=== PATIENT | female | born 1950 | race Caucasian/White ===

== ENCOUNTER → 2016-12-18 | Outpatient (CLI) | payer OTHER ==
--- NOTE | 2016-12-19 09:33 | MM ---
Reason for exam: screening (asymptomatic). Last mammogram was performed 1 year ago. History: Patient is postmenopausal. Excisional biopsy of the left breast. Physical Findings: A clinical breast exam by your physician is recommended on an annual basis and results should be correlated with mammographic findings. MG Screening Mammo w CAD Bilateral CC and MLO view(s) were taken. Prior study comparison: November 10, 2014, bilateral MG screening mammo w CAD. August 29, 2013, bilateral digital screening mammo w/CAD. There are scattered fibroglandular densities. Finding: There are typically benign vascular, regional, round, diffuse/scattered calcifications in the right breast. There is a chronic nodularity in the right breast. There is no discrete abnormality. ASSESSMENT: Benign, BI-RAD 2 RECOMMENDATION: Routine screening mammogram of both breasts in 1 year.
== END | disposition home or self-care (01) ==
LOC: RADMAMWWP 10:28
PROVIDERS: ATTEND Obstetrics & Gynecology
DX: Z12.31 Encounter for screening mammogram for malignant neoplasm of breast (principal)

== ENCOUNTER 2018-03-21 10:03 | Day surgery (SDC) | payer MEDICARE ==
[2018-03-19 09:00] VITALS: BMI 29.9
[~2018-03-21 10:03] MED LIST: LACTATED RINGERS 1,000 ML IV SCH
[2018-03-21 10:38] VITALS: TEMP 98.8
[2018-03-21] MEDS ORDERED: LIDOCAINE 1% 20 ML VIAL (10MG/ML) FOR IV START INTRADERMA ONE (10:38)
[2018-03-21] MEDS ORDERED: PROPOFOL 10 MG/ML 20 ML VIAL IV ONE (11:22)
--- NOTE | 2018-03-21 11:45 | P.PCN ---
Date of Procedure: 03/21/18 Procedure(s) Performed: Procedure: Total colonoscopy. Preoperative diagnosis: Screening for neoplasia. Postoperative diagnosis: Sigmoid diverticulosis with no evidence of acute diverticulitis, strictures, polyps or cancer. Preparation: HalfLytely prep. Sedation: Was provided by anesthesia. Brief clinical history: The patient is a 67-year-old female who is referred for this evaluation for screening for neoplasia age being her risk factor as well as history of polyps. Her last colonoscopy was more than 4 years ago. She has history of complicated diverticular disease and had sigmoid resection in the past. She has no abdominal complaints, bleeding or anemia. No family history of colon cancer. Procedure: With the patient on her left lateral decubitus position and after informed consent and adequate sedation, the perianal area was inspected and it did not show any fissures or fistulas. There were no masses felt on digital rectal examination. The Olympus CFQ 160L video colonoscope was then inserted in the rectum in the usual fashion and advanced to the cecum. There were several diverticular orifices seen scattered in the sigmoid with no evidence of acute diverticulitis or strictures. No polyps or tumors were seen. I retroflexed the endoscope in the rectum before the endoscope was withdrawn. The patient tolerated the procedure well. Plan: The patient was reassured. Discussed dietary measures. She will follow- up with you as planned and I recommended repeat exam in 5 years.
[2018-03-21 12:23] VITALS: BP 135/76; PULSE 72; RESP 18
== END 2018-03-21 12:35 | disposition home or self-care (01) ==
LOC: ORWHC2ENDO 10:03
DX: Z12.11 Encounter for screening for malignant neoplasm of colon (principal); K57.30 Diverticulosis of large intestine without perforation or abscess without bleeding; Z86.010 Personal history of colon polyps; Z90.49 Acquired absence of other specified parts of digestive tract; I48.91 Unspecified atrial fibrillation; J45.909 Unspecified asthma, uncomplicated; I25.10 Atherosclerotic heart disease of native coronary artery without angina pectoris; E78.5 Hyperlipidemia, unspecified; I25.2 Old myocardial infarction; Z86.73 Personal history of transient ischemic attack (TIA), and cerebral infarction without residual deficits; Z79.01 Long term (current) use of anticoagulants; Z79.51 Long term (current) use of inhaled steroids; Z79.899 Other long term (current) drug therapy; Z88.6 Allergy status to analgesic agent; Z88.1 Allergy status to other antibiotic agents; Z88.5 Allergy status to narcotic agent; Z88.2 Allergy status to sulfonamides; Z88.8 Allergy status to other drugs, medicaments and biological substances
CPT/HCPCS: J2704; G0105; 45378

== ENCOUNTER → 2019-09-05 | Outpatient (CLI) | payer MEDICARE ==
--- NOTE | 2019-09-05 15:21 | BD ---
EXAMINATION TYPE: Axial Bone Density DATE OF EXAM: 09/05/2019 COMPARISON: 12/08/2015 CLINICAL HISTORY: M 89.9 Height: 63.5 IN Weight: 196 LBS FRAX RISK QUESTIONS: Secondary Osteoporosis: 3. Menopause before 45: TOTAL HYST AGE 33 RISK FACTORS HISTORY OF: History of Wrist Fracture: TOM WRISTS When: PT UNSURE Family History of Osteoporosis: YES SISTER Active: YES Diet low in dairy products/other sources of calcium: YES Postmenopausal woman: TOTAL HYST AGE 33 Take estrogen and/or progesterone medications: AGE 34-39 MEDICATIONS: Additional Medications: VIT D,WARFARIN, HEART MED, OCUVITE, EXAM MEASUREMENTS: Bone mineral densitometry was performed using the [employer] System. Bone mineral density as measured about the Lumbar spine is: ----- L1-L4(G/cm2): 0.997 T Score Values are as follows: ----- L2: -1.5 ----- L3: -1.1 ----- L4: -0.9 ----- L1-L4: -1.5 Bone mineral density has: Decreased -1.4% since study of: 12/08/2015 Bone mineral density about the R hip (g/cm2): 0.811 Bone mineral density about the L hip (g/cm2): 0.764 T Score values are as follows: -----R Neck: -1.6 -----L Neck: -2.0 -----R Total: -0.8 -----L Total: -1.0 Bone mineral density has: Decreased -2.2% since study of: 12/08/2015 IMPRESSION: Osteopenia (T Score between -2.5 and -1). There is slightly increased risk of fracture and the patient may be considered for treatment. Re-Screen 2-5 years. NOTE: T-SCORE=SD OF THE YOUNG ADULT MEAN.
--- NOTE | 2019-09-08 09:19 | MM ---
Reason for exam: screening (asymptomatic). Last mammogram was performed 2 years and 9 months ago. History: Patient is postmenopausal. Excisional biopsy of the left breast. Physical Findings: A clinical breast exam by your physician is recommended on an annual basis and results should be correlated with mammographic findings. MG 3D Screening Mammo W/Cad Bilateral CC and MLO view(s) were taken. Prior study comparison: December 18, 2016, bilateral MG screening mammo w CAD. December 13, 2015, left breast MG 3d work up w/cad LT. There are scattered fibroglandular densities. There is a new 5mm mass 6-7cm from nipple on the right. Benign appearing calcifications in the right breast. No suspicious abnormality. ASSESSMENT: Incomplete: need additional imaging evaluation, BI-RAD 0 RECOMMENDATION: Special view mammogram of the right breast. If lesion persists on supplemental views, image directed ultrasound is recommended. [facility] will attempt to contact patient to return for supplemental views and ultrasound if indicated.
== END | disposition home or self-care (01) ==
LOC: RADMAMWWP 11:46
PROVIDERS: ATTEND Obstetrics & Gynecology
DX: Z12.31 Encounter for screening mammogram for malignant neoplasm of breast (principal); M85.89 Other specified disorders of bone density and structure, multiple sites; Z78.0 Asymptomatic menopausal state
CPT/HCPCS: 77063; 77067; 77080

== ENCOUNTER → 2019-09-19 | Outpatient (CLI) | payer MEDICARE ==
--- NOTE | 2019-09-22 12:23 | MM ---
Reason for exam: additional evaluation requested from abnormal screening. Last mammogram was performed less than 1 month ago. History: Patient is postmenopausal. Excisional biopsy of the left breast. Took estrogen for 7 years beginning at age 31. Physical Findings: Nurse did not find any significant physical abnormalities on exam. MG 3D Work Up W/Cad RT Spot compression CC, spot compression MLO, and LM view(s) were taken of the right breast. Prior study comparison: September 05, 2019, bilateral MG 3d screening mammo w/cad. December 18, 2016, bilateral MG screening mammo w CAD. Finding: There is a 5 mm circumscribed oval mass located 5 cm from the nipple in the middle position of the right breast, persists on additional views. These results were verbally communicated with the patient and result sheet given to the patient on 09/19/19. ASSESSMENT: Incomplete: need additional imaging evaluation, BI-RAD 0 RECOMMENDATION: Ultrasound of the right breast.
--- NOTE | 2019-09-22 12:24 | USB ---
Reason for exam: additional evaluation requested from abnormal screening. History: Patient is postmenopausal. Excisional biopsy of the left breast. Took estrogen for 7 years beginning at age 31. US Breast Workup Limited RT Right limited breast ultrasound including focal area of concern, retroareolar and axilla demonstrates a 0.5 x 0.3 x 0.4cm oval, irregular, hypoechoic lesion at 2 o'clock, correlates with mammographic new lesion. These results were verbally communicated with the patient and result sheet given to the patient on 09/19/19. ASSESSMENT: Suspicious, BI-RAD 4 RECOMMENDATION: Stereotactic core biopsy of the right breast. Called Dr. Bui's office with mammographic findings and has scheduled an appointment for the patient for 10/30/19 at 11:[address] Lewis. Biopsy scheduled for 10/31/19 at 8:00. PRELIMINARY REPORT CALLED AND FAXED TO DR. LEWIS ON 09/22/19.
== END | disposition home or self-care (01) ==
LOC: RADMAMWWP 13:53
PROVIDERS: ATTEND Obstetrics & Gynecology
DX: R92.8 Other abnormal and inconclusive findings on diagnostic imaging of breast (principal)
CPT/HCPCS: 77065; 76642; G0279; 77061

== ENCOUNTER → 2019-10-31 | Day surgery (SDC) | payer MEDICARE ==
[2019-10-31 07:19] VITALS: RESP 18; TEMP 97.9
[2019-10-31 07:47] LABS: INR 1.1 (<1.2); Prothrombin Time 10.8 sec (9.0-12.0)
[2019-10-31 10:13] VITALS: BP 134/76; PULSE 68
--- NOTE | 2019-10-31 12:59 | MM ---
EXAMINATION TYPE: MG stereo VAD BX RT DATE OF EXAM: 10/31/2019 COMPARISON: 11/06/2018 CLINICAL HISTORY: Abnormal mammogram TECHNIQUE: 2 views of the right breast post clip placement. FINDINGS: Clip is within the expected region of the biopsy. IMPRESSION: 1. Successful clip placement postbiopsy. Recommendations: 1. Recommendations are pending pathology results. Pathology Results: High Risk RIGHT BREAST, STEREOTACTIC CORE BIOPSY: Fragments of sclerotic intraductal papilloma. Background proliferative fibrocystic changes including complex sclerosing lesion and moderate to florid usual type ductal hyperplasia. See note. Recommendation Surgical consult of the right breast. (papilloma and complex sclerosing lesion) BILLD
== END ==
LOC: RADMAMWWP 06:41
PROVIDERS: ATTEND Surgery
DX: D24.1 Benign neoplasm of right breast (principal); R92.8 Other abnormal and inconclusive findings on diagnostic imaging of breast
CPT/HCPCS: 88305; 85610; 88342; 88341; 19081; A4648; J2001

== ENCOUNTER → 2020-05-03 | Outpatient (CLI) | payer MEDICARE ==
--- NOTE | 2020-05-04 14:09 | MM ---
Reason for exam: follow-up at short interval from prior study. Last mammogram was performed 7 months ago. History: Patient is postmenopausal and has history of high-risk lesion on a previous biopsy at age 69. High risk MG stereo VAD BX RT of the right breast, October 31, 2019. Excisional biopsy of the left breast. Took estrogen for 7 years beginning at age 31. Physical Findings: Nurse did not find any significant physical abnormalities on exam. MG 3D Diag Mammo W/Cad RT CC and MLO view(s) were taken of the right breast. Prior study comparison: September 19, 2019, right breast MG 3d work up w/cad RT. September 05, 2019, bilateral MG 3d screening mammo w/cad. The breast tissue is heterogeneously dense. This may lower the sensitivity of mammography. Finding #1: There is a 4-5 mm circumscribed round mass located 5-6 cm from the nipple in the anterior middle position of the right breast. Finding #2: There are typically benign vascular, dystrophic, round calcifications in the right breast. Previous mammotome biopsy in the right breast. There is a chronic nodularity in the right breast. New finding, more defined since September 19, 2019 and September 05, 2019. These results were verbally communicated with the patient and result sheet given to the patient on 05/03/20. ASSESSMENT: Incomplete: need additional imaging evaluation, BI-RAD 0 RECOMMENDATION: Ultrasound of the right breast.
--- NOTE | 2020-05-04 14:11 | USB ---
Reason for exam: additional evaluation requested from abnormal screening. History: Patient is postmenopausal and has history of high-risk lesion on a previous biopsy at age 69. High risk MG stereo VAD BX RT of the right breast, October 31, 2019. Excisional biopsy of the left breast. Took estrogen for 7 years beginning at age 31. US Breast Limited RT Right limited breast ultrasound including focal area of concern, retroareolar and axilla demonstrates a 0.4 x 0.5 x 0.5cm oval, taller than wide, cystic lesion at 8 o'clock and a 1.7 x 1.4 x 0.2cm lymph node at the axilla. These results were verbally communicated with the patient and result sheet given to the patient on 05/03/20. ASSESSMENT: Probably benign, BI-RAD 3 RECOMMENDATION: Follow-up diagnostic mammogram and ultrasound of the right breast in 6 months.
== END | disposition home or self-care (01) ==
LOC: RADMAMWWP 13:44
PROVIDERS: ATTEND Surgery
DX: R92.8 Other abnormal and inconclusive findings on diagnostic imaging of breast (principal)
CPT/HCPCS: 77065; 76642; G0279; 77061

== ENCOUNTER → 2020-06-04 | Outpatient (CLI) | payer MEDICARE ==
[2020-06-04 11:15] VITALS: BP 145/99; PULSE 88; RESP 18; TEMP 98.1
--- NOTE | 2020-06-04 11:56 | P.PN ---
Subjective Progress Note Date: 06/04/20 Principal diagnosis: intraductal papilloma right breast Rowena is a 69 year old white female seen in consultation for DR. Bui on 11-06-19 with a routine screening mammogram performed on [id number]. It revealed a 5 mm area 6-7 cm from the nipple in the right breast. No lesions of concern were noted in the left breast. On 09/19/2019 she had additional views done of the right breast which the 5 mm mass remained present. She subsequently underwent an ultrasound which confirmed the area at 2:00 which correlated with the mammographic lesion. Stereotactic core biopsy of the lesion in the right breast was preformed, and the pathology revelaed an intraductal papilloma. She was recommended to undergo an excisional biopsy which was delayed secondary to Covid. She has had a recent repeat right breast mammogram on 05-03-20. The patient does not feel any discrete masses or lumps in either breast. She is not complaining of any nipple discharge of concern. She does not complain of any discomfort in her breast. She does not complain of any nipple discharge, skin changes, trauma, or infection of either breast. She did have a left breast biopsy in the past which was benign fibrocystic disease. This was done many years ago. Caffeine:3 cups/day nicotine: none chocolate: Occasional/intermittent Family history: sister: ovarian cancer at 52 mother: cervical cancer paternal aunt: breast cancer, 60's Hormonal History: menarche: 13 , first born at 23, bresat fed: yes menopause: hysterectomy for bleeding and pain, took one ovary done at 33 BCP: none hormones: 3 years after hysterectomy Surgical history: 1. Hysterectomy in 1 ovary removed 2. Colon resection for diverticular disease 3. Ventral hernia repair 4. Left breast biopsy 5. Tonsillectomy 6. oophrectomy to remove remaining ovary after her hysterectomy she has no ovaries left 7. laproscopic exams for adhesions Medical History: 1. CVA 1987, 5 TIA's related to atrial fib and Mitral valve prolapse 2. 2 MS last one over 5 years ago Social History: smoke: none alcohol: none drugs: none - Constitutional Constitutional: Denies chills, Denies fever - EENT Eyes: denies blurred vision, denies pain Ears: left: decreased hearing, deny: tinnitus Ears, nose, mouth and throat: Denies headache, Denies sore throat - Breasts Breasts: bilateral: as per HPI - Cardiovascular Comment: MS mitral valve prolapse atrial fibrillation - Respiratory Comment: asthma Respiratory: Denies cough - Gastrointestinal Comment: Colon resection for diverticular disease/ low anterior resection Gastrointestinal: Denies abdominal pain, Denies diarrhea, Denies nausea, Denies vomiting - Genitourinary (Female) Genitourinary: Denies dysuria, Denies hematuria - Menstruation Menstruation: Reports post hysterectomy - Musculoskeletal Musculoskeletal: Denies myalgias - Integumentary Integumentary: Denies pruritus, Denies rash - Neurological Comment: CVA, TIA - Psychiatric Psychiatric: Denies anxiety, Denies depression - Endocrine Endocrine: Denies fatigue, Denies weight change - Hematologic/Lymphatic Comment: coumadin for atrial fibrillation - Allergic/Immunologic Allergic/Immunologic: Reports seasonal allergies Objective - Vital Signs Vital signs: Vital Signs Temp 98.1 F 06/04/20 11:10 Pulse 88 06/04/20 11:10 Resp 18 06/04/20 11:10 BP 145/99 06/04/20 11:10 Pulse Ox 95 06/04/20 11:10 Intake & Output 06/03/20 06/04/20 06/04/20 18:59 06:59 18:59 Weight 92.986 kg - Exam BMI 35.7 - Constitutional General appearance: Present: average body habitus - EENT Eyes: Present: EOMI ENT: Present: hearing grossly normal - Respiratory Respiratory: bilateral: CTA - Cardiovascular Rhythm: regular Heart sounds: normal: S1, S2 - Gastrointestinal General gastrointestinal: Present: normal bowel sounds, soft - Integumentary Integumentary: Present: normal turgor - Musculoskeletal Musculoskeletal: Present: gait normal - Psychiatric Psychiatric: Present: A&O x's 3, appropriate affect, intact judgment & insight - Additional findings Additional findings: Breast Exam: BRA: 38C inspection: Bilateral grade 2 ptosis Palpation: Right breast: multipositional exam no dominant masses or nodules of concern, fibrocystic changes Right axilla: No adenopathy of concern Left breast: Multi-positional exam no dominant masses or nodules of concern, fibrocystic changes, well-healed scar from prior biopsy Left axilla: No adenopathy of concern Assessment and Plan Assessment: Impression: 1. Intraductal papilloma right breast 2. Fibrocystic breast changes 3. Atrial fibrillation 4. Patient on Coumadin Plan: 1. Right breast needle localization excisional biopsy 2. Medical clearance from Dr. Hobbs 3. Patient will stop her Coumadin 5 days preoperative and use Lovenox 4. PT and INR preoperatively CC: DR. Garrido encounter 25 minutes, > 50% of time in planning and counselling
== END | disposition home or self-care (01) ==
LOC: WWCWWP 11:03
PROVIDERS: ATTEND Surgery
DX: Z53.9 Procedure and treatment not carried out, unspecified reason (principal)

== ENCOUNTER 2020-06-22 10:22 | Day surgery (SDC) | payer MEDICARE ==
[2020-06-18 10:08] VITALS: BMI 34.0
[~2020-06-22 10:22] MED LIST changes: +DEXAMETHASONE SOD PHOSPHATE 10 MG/ML 1 ML VIAL IV ONE; +HEPARIN SODIUM,PORCINE 5,000 UNIT/ML 1 ML VIAL SQ ONE; +LIDOCAINE 1% (10MG/ML) FOR IV START INTRADERMA PRN; +MIDAZOLAM 2 MG/2 ML VIAL IV PRN; +MORPHINE SULFATE 4 MG/ML SYRINGE IV PRN; +Pre Op ABX Message 1 EACH MISC MISCELLANE ONE
[2020-06-22 11:46] LABS: Partial Thromboplastin Time 25.5 sec (22.0-30.0); Prothrombin Time 10.6 sec (9.0-12.0)
[2020-06-22] MEDS ORDERED: LIDOCAINE 1% INJ 10MG/ML (20 ML MDV) SQ ONE ×3 (12:10→13:38)
[2020-06-22 12:13] VITALS: RESP 16
[2020-06-22] MEDS ORDERED: LIDOCAINE 1% INJ 10MG/ML (20 ML MDV) ONE (12:43)
[2020-06-22] MEDS ORDERED: ePHEDrine SULFATE/0.9% NACL/PF 50 MG/5 ML SYRINGE IV ONE (12:43)
[2020-06-22] MEDS ORDERED: fentaNYL (PF) 50 MCG/ML 2 ML AMP ONE (12:43)
[2020-06-22] MEDS ORDERED: MIDAZOLAM 2 MG/2 ML VIAL ONE (12:43)
[2020-06-22] MEDS ORDERED: PROPOFOL 10 MG/ML 20 ML VIAL IV ONE (12:43)
--- NOTE | 2020-06-22 13:41 | P.OP ---
Date of Procedure: 06/22/20 Preoperative Diagnosis: Intraductal papilloma right breast Postoperative Diagnosis: Same Procedure(s) Performed: Localization excisional lumpectomy Anesthesia: MAC, local Surgeon: Elizabeth Lewis Estimated Blood Loss (ml): 5 IV fluids (ml): 700 Pathology: other (Breast tissue) Condition: stable Disposition: same day Indications for Procedure: core biopsy intraductal papilloma right breast Operative Findings: Fibrofatty breast tissue Description of Procedure: Following needle localization of the area of concern in the right breast the patient was brought to the operating room. Following induction of anesthesia the right breast was prepped and draped in a sterile fashion. An incision was made and carried down to the shaft of the needle. Surrounding tissue was excised. SPECIMEN was painted for orientation. Radiograph revealed the area of concern had been removed. The wound was well irrigated. Titanium clips were placed. After assured that hemostasis was attained the deep tissues were closed using 3-0 Vicryl suture. This is followed by a 4-0 Monocryl closure of the skin. Steri-Strips were applied. All instrument and sponge counts were correct at the end of the case. Patient tolerated procedure in stable condition.
--- NOTE | 2020-06-22 13:42 | P.DS ---
Providers Attending physician: Elizabeth Lewis Primary care physician: Lety Garrido Plan - Discharge Summary Discharge Rx Participant: No New Discharge Prescriptions: No Action Cholecalciferol (Vitamin D3) [Vitamin D3] 2,000 mg PO DAILY Albuterol Inhaler (Mhu) [Ventolin Hfa Inhaler (Mhu)] 2 puff INHALATION BID PRN PRN Reason: Shortness Of Breath Or Wheezing Warfarin [Coumadin] 7.5 mg PO DAILY Vits A,C,E/Lutein/Minerals [Ocuvite with Lutein Tablet] 1 each PO DAILY Red Yeast Rice 600 mg PO HS Flaxseed Oil 1,000 mg PO HS carvediloL [Coreg] 3.125 mg PO DAILY Calcium Carbonate/Vitamin D3 [Calcium 600-Vit D3 400 Tablet] 1 each PO BID Enoxaparin [Lovenox] 80 mg SQ Q12H Discharge Medication List Albuterol Inhaler (Mhu) [Ventolin Hfa Inhaler (Mhu)] 2 puff INHALATION BID PRN 07/06/14 [History] Cholecalciferol (Vitamin D3) [Vitamin D3] 2,000 mg PO DAILY 07/06/14 [History] Vits A,C,E/Lutein/Minerals [Ocuvite with Lutein Tablet] 1 each PO DAILY 03/19/18 [History] Warfarin [Coumadin] 7.5 mg PO DAILY 03/19/18 [History] Flaxseed Oil 1,000 mg PO HS 06/04/20 [History] Red Yeast Rice 600 mg PO HS 06/04/20 [History] Calcium Carbonate/Vitamin D3 [Calcium 600-Vit D3 400 Tablet] 1 each PO BID 0 06/18/20 [History] carvediloL [Coreg] 3.125 mg PO DAILY 06/18/20 [History] Enoxaparin [Lovenox] 80 mg SQ Q12H 06/22/20 [History] Follow up Appointment(s)/Referral(s): Elizabeth Lewis MD [STAFF PHYSICIAN] - 1 Week Activity/Diet/Wound Care/Special Instructions: Do not drive for 24 hours from discharge, do not drive if taking narcotic pain medication May shower after 48 hours Wear bra at all times Discharge Disposition: HOME SELF-CARE
--- NOTE | 2020-06-22 13:45 | MM ---
EXAMINATION TYPE: MG pre op needle loc RT DATE OF EXAM: 06/22/2020 COMPARISON: 10/31/2019 CLINICAL HISTORY: Request for needle localization of the surgical clip within the right breast TECHNIQUE: Needle localization with wire placement and surgical excision of area of concern in the right breast. FINDINGS: The procedure of needle localization with wire placement and than surgical excision was explained to the patient. Benefits, alternatives, and risks were discussed. An informed consent was then obtained. The shortest pathway for procedure was chosen. Shortest pathway was medial approach. The overlying skin was prepped and draped in usual sterile fashion. Lidocaine buffered with bicarbonate was used as anesthetic into the skin and subcutaneous tissue up to the level of area of concern. A 5 cm needle was used. It was placed via a medial approach under mammographic guidance. Subsequent 90 degrees mammogram show the needle to be in satisfactory position relative to the targeted area. At this point, wire was placed and the needle was withdrawn. The wire was fixed to patient's skin. Images were marked for surgeon. The patient tolerated the procedure well without any immediate complication. The patient was kept in the radiology department for short stay after the procedure and then taken to surgery for surgical excision. Targeted requested surgical clip and wire are identified in specimen mammogram. The patient was kept in hospital for short stay after the procedure and then discharged home in stable condition. IMPRESSION: Successful, uncomplicated needle localization with wire placement and surgical excision of the requested surgical clip in the right breast, full pathology results to follow. Pathology Results: Benign RIGHT BREAST, NEEDLE LOCALIZATION EXCISION: Intraductal papilloma, margins negative. Background fibrocystic changes including focal usual type ductal hyperplasia. Recommendation Follow up mammogram of the right breast in 6 months. LIAM
[2020-06-22 13:54] VITALS: TEMP 97.1
[2020-06-22] MEDS: fentaNYL (PF) 50 MCG/ML 2 ML AMP IV ONE ×2 (14:05→14:10)
[2020-06-22] MEDS ORDERED: ACETAMINOPHEN TAB 500 MG TAB PO ONE (15:20)
[2020-06-22] MEDS ORDERED: ACETAMINOPHEN TAB 500 MG TAB ONE (15:26)
[2020-06-22 16:31] VITALS: BP 145/69; PULSE 69
--- NOTE | 2020-06-25 08:54 | MM ---
MG Surgical Specimen RT EXAMINATION TYPE: MG pre op needle loc RT DATE OF EXAM: 06/22/2020 COMPARISON: 10/31/2019 CLINICAL HISTORY: Request for needle localization of the surgical clip within the right breast TECHNIQUE: Needle localization with wire placement and surgical excision of area of concern in the right breast. FINDINGS: The procedure of needle localization with wire placement and than surgical excision was explained to the patient. Benefits, alternatives, and risks were discussed. An informed consent was then obtained. The shortest pathway for procedure was chosen. Shortest pathway was medial approach. The overlying skin was prepped and draped in usual sterile fashion. Lidocaine buffered with bicarbonate was used as anesthetic into the skin and subcutaneous tissue up to the level of area of concern. A 5 cm needle was used. It was placed via a medial approach under mammographic guidance. Subsequent 90 degrees mammogram show the needle to be in satisfactory position relative to the targeted area. At this point, wire was placed and the needle was withdrawn. The wire was fixed to patient's skin. Images were marked for surgeon. The patient tolerated the procedure well without any immediate complication. The patient was kept in the radiology department for short stay after the procedure and then taken to surgery for surgical excision. Targeted requested surgical clip and wire are identified in specimen mammogram. The patient was kept in hospital for short stay after the procedure and then discharged home in stable condition. IMPRESSION: Successful, uncomplicated needle localization with wire placement and surgical excision of the requested surgical clip in the right breast, full pathology results to follow. RECOMMENDATION: Follow-up diagnostic mammogram of the right breast in 6 months. LIAM
== END 2020-06-22 16:40 | disposition home or self-care (01) ==
LOC: RADMAMWWP 10:22
PROVIDERS: ATTEND Surgery
DX: D24.1 Benign neoplasm of right breast (principal); N60.12 Diffuse cystic mastopathy of left breast; N60.11 Diffuse cystic mastopathy of right breast; I48.91 Unspecified atrial fibrillation; I34.1 Nonrheumatic mitral (valve) prolapse; I25.2 Old myocardial infarction; N64.81 Ptosis of breast; I10 Essential (primary) hypertension; J45.909 Unspecified asthma, uncomplicated; Z88.2 Allergy status to sulfonamides; Z88.8 Allergy status to other drugs, medicaments and biological substances; Z88.5 Allergy status to narcotic agent; Z88.6 Allergy status to analgesic agent; Z88.1 Allergy status to other antibiotic agents; Z90.710 Acquired absence of both cervix and uterus; Z87.19 Personal history of other diseases of the digestive system; Z90.49 Acquired absence of other specified parts of digestive tract; Z98.890 Other specified postprocedural states; Z90.89 Acquired absence of other organs; Z90.722 Acquired absence of ovaries, bilateral; Z86.73 Personal history of transient ischemic attack (TIA), and cerebral infarction without residual deficits; Z79.01 Long term (current) use of anticoagulants; Z80.41 Family history of malignant neoplasm of ovary; Z80.49 Family history of malignant neoplasm of other genital organs; Z80.3 Family history of malignant neoplasm of breast
CPT/HCPCS: 19301; 85610; 85730; 88307; 76098; 19281; J2250; J1644; J2001; J3010; J2704

== ENCOUNTER → 2020-07-01 | Outpatient (CLI) | payer MEDICARE ==
--- NOTE | 2020-07-01 16:17 | P.PN ---
Progress Note - Text Progress Note Date: 07/01/20 Patient is a 69-year-old white female status [place] [id number]. Pathology revealed an intraductal papilloma. Patient is doing well postoperatively. Of significance is the fact that she is on Coumadin and was bridged with Lovenox. She has completed the Lovenox and is being followed by her primary care doctor regarding her Coumadin. Physical exam: Lungs: Clear Heart: Regular rate and rhythm Incision: Clean and dry Evidence of infection or hematoma Impression: 1. Patient status post right breast needle local excisional biopsy pathology benign intraductal papilloma Plan: 1. Follow up with Dr. Courtney kowalski regarding Coumadin and PT/INR levels 2. Repeat right breast mammogram and ultrasound in 6 months with physician exam at that time Of concern is the fact that the patient had a second very small lesion in the right breast in addition to the one which we excised for which follow-up was recommended. cc; Dr. Garrido
[2020-07-01 16:18] VITALS: BP 136/82; PULSE 75; RESP 12; TEMP 98.1
== END | disposition home or self-care (01) ==
LOC: WWCWWP 15:54
PROVIDERS: ATTEND Surgery
DX: Z53.9 Procedure and treatment not carried out, unspecified reason (principal)

== ENCOUNTER → 2021-01-18 | Outpatient (CLI) | payer MEDICARE ==
--- NOTE | 2021-01-18 10:07 | MM ---
Reason for exam: follow-up at short interval from prior study. Last mammogram was performed 9 months ago. History: Patient is postmenopausal and has history of high-risk lesion on a previous biopsy at age 69. Benign MG pre op needle loc RT of the right breast, June 22, 2020. High risk MG stereo VAD BX RT of the right breast, October 31, 2019. Excisional biopsy of the left breast. Took estrogen for 7 years beginning at age 31. Physical Findings: Nurse Summary: 0.5cm nodule in the left breast at 5 o'clock (nurse katelyn). MG 3D Diag Mammo W/Cad TOM Bilateral CC and MLO view(s) were taken. Prior study comparison: May 03, 2020, right breast MG 3d diag mammo w/cad RT. September 19, 2019, right breast MG 3d work up w/cad RT. There are scattered fibroglandular densities. Finding #1: Architectural distortion in the inner quadrant of the right breast consistent with known excisional changes. Finding #2: There are typically benign round, linear calcifications. There is a chronic nodularity in the right breast. There is no new dominant lesion. Distortion left upper aspect consistent with known excision changes. These results were verbally communicated with the patient and result sheet given to the patient on 01/18/21. ASSESSMENT: Incomplete: need additional imaging evaluation, BI-RAD 0 RECOMMENDATION: Ultrasound of both breasts.
--- NOTE | 2021-01-18 10:11 | USB ---
Reason for exam: additional evaluation requested from abnormal screening. History: Patient is postmenopausal and has history of high-risk lesion on a previous biopsy at age 69. Benign MG pre op needle loc RT of the right breast, June 22, 2020. High risk MG stereo VAD BX RT of the right breast, October 31, 2019. Excisional biopsy of the left breast. Took estrogen for 7 years beginning at age 31. US Breast Limited BILAT Right complete breast ultrasound includes all four quadrants, the retroareolar region and axilla. Finding demonstrates a 0.4 x 0.4 x 0.5cm oval, taller than wide, cystic, stable lesion at 8 o'clock and a 1.3 x 1.8 x 1.1cm lymph node at the axilla, prominent but benign morphology and stable. Right 2 o'clock clip. Left limited breast ultrasound including focal area of concern, retroareolar and axilla demonstrates a 1.3 x 0.9 x 0.7cm lymph node at the axilla, probable benign lymph node. These results were verbally communicated with the patient and result sheet given to the patient on 01/18/21. ASSESSMENT: Benign, BI-RAD 2 RECOMMENDATION: Follow-up diagnostic mammogram of both breasts in 1 year.
== END | disposition home or self-care (01) ==
LOC: RADMAMWWP 08:22
PROVIDERS: ATTEND Surgery
DX: R92.8 Other abnormal and inconclusive findings on diagnostic imaging of breast (principal); R92.1 Mammographic calcification found on diagnostic imaging of breast
CPT/HCPCS: 77066; 76642; G0279; 77062

== ENCOUNTER → 2021-01-20 | Outpatient (CLI) | payer MEDICARE ==
[2021-01-20 13:59] VITALS: BP 123/79; PULSE 95; RESP 18; TEMP 98.1
--- NOTE | 2021-01-20 14:12 | P.PN ---
Subjective Progress Note Date: 01/20/21 Principal diagnosis: fibrocystic breast disease intraductal papilloma right breast Rowena is a 70 year old white female seen in consultation for DR. Bui on 11-06-19 with a routine screening mammogram performed on [id number]. It revealed a 5 mm area 6-7 cm from the nipple in the right breast. No lesions of concern were noted in the left breast. On 09/19/2019 she had additional views done of the right breast which the 5 mm mass remained present. She subsequently underwent an ultrasound which confirmed the area at 2:00 which correlated with the mammographic lesion. Stereotactic core biopsy of the lesion in the right breast was preformed, and the pathology revelaed an intraductal papilloma. She was recommended to undergo an excisional biopsy which was delayed secondary to Covid. Needle localization and excision was preformed on 06-22-20. It revealed an intraductal papilloma. The patient does not feel any discrete masses or lumps in either breast. She is not complaining of any nipple discharge of concern. She does not complain of any discomfort in her breast. She does not complain of any nipple discharge, skin changes, trauma, or infection of either breast. She did have a left breast biopsy in the past which was benign fibrocystic disease. This was done many years ago. A bilateral mammogram performed on [id number] after which she was recommended she undergo bilateral ultrasound. This was performed on the same date. On ultrasound the patient was noted to have in the right breast a 0.4 x 0.5 tolerated and wide cystic stable lesion at 8:00 and 1.3 x 1.8 cm lymph node in the axilla felt to be benign in the left breast she was noted to have a 1.3 x 0.9 cm lymph node in the axilla felt to be benign the overall finding was benign BIRADS 2. The patient herself does not feel any lumps masses or nodules in either breast. She's not complaining of any nipple discharge or skin changes. Caffeine:3 cups/day nicotine: none chocolate: Occasional/intermittent Family history: sister: ovarian cancer at 52 mother: cervical cancer paternal aunt: breast cancer, 60's Hormonal History: menarche: 13 , first born at 23, bresat fed: yes menopause: hysterectomy for bleeding and pain, took one ovary done at 33 BCP: none hormones: 3 years after hysterectomy Surgical history: 1. Hysterectomy in 1 ovary removed 2. Colon resection for diverticular disease 3. Ventral hernia repair 4. Left breast biopsy 5. Tonsillectomy 6. oophrectomy to remove remaining ovary after her hysterectomy she has no ovaries left 7. laproscopic exams for adhesions Medical History: 1. CVA 1987, 5 TIA's related to atrial fib and Mitral valve prolapse 2. 2 TN last one over 5 years ago Social History: smoke: none alcohol: none drugs: none - Constitutional Constitutional: Denies chills, Denies fever - EENT Eyes: denies blurred vision, denies pain Ears: left: decreased hearing, deny: tinnitus Ears, nose, mouth and throat: Denies headache, Denies sore throat - Breasts Breasts: bilateral: as per HPI - Cardiovascular Comment: TN mitral valve prolapse atrial fibrillation - Respiratory Comment: asthma Respiratory: Denies cough - Gastrointestinal Comment: Colon resection for diverticular disease/ low anterior resection Gastrointestinal: Denies abdominal pain, Denies diarrhea, Denies nausea, Denies vomiting - Genitourinary (Female) Genitourinary: Denies dysuria, Denies hematuria - Menstruation Menstruation: Reports post hysterectomy - Musculoskeletal Musculoskeletal: Denies myalgias - Integumentary Integumentary: Denies pruritus, Denies rash - Neurological Comment: CVA, TIA - Psychiatric Psychiatric: Denies anxiety, Denies depression - Endocrine Endocrine: Denies fatigue, Denies weight change - Hematologic/Lymphatic Comment: coumadin for atrial fibrillation - Allergic/Immunologic Allergic/Immunologic: Reports seasonal allergies Objective - Vital Signs Vital signs: Intake & Output 01/19/21 01/20/21 01/20/21 18:59 06:59 18:59 Weight 90.718 kg - Constitutional General appearance: Present: average body habitus - EENT ENT: Present: hearing grossly normal - Neck Neck: Present: normal ROM - Respiratory Respiratory: bilateral: CTA - Cardiovascular Heart sounds: normal: S1, S2 - Gastrointestinal General gastrointestinal: Present: soft - Integumentary Integumentary: Present: normal turgor - Musculoskeletal Musculoskeletal: Present: gait normal - Psychiatric Psychiatric: Present: A&O x's 3, appropriate affect, intact judgment & insight - Additional findings Additional findings: breast exam: BRA: 38D inspection: bilateral grade 2 ptosis palpation: right breast: Well-healed scar from prior surgery no dominant masses or nodules of concern on multiple positional exam, fibrocystic changes Right axilla: No adenopathy of concern Left breast: Multi-positional exam fibrocystic changes, no dominant masses or nodules of concern Well-healed scar from prior surgery Left axilla: No adenopathy of concern Assessment and Plan Assessment: Impression: 1. CVA 1987, TIA's related to atrial fib and Mitral valve prolapse 2. 2 TN last one over 5 years ago 3. status post right breast biopsy; intraductal papilloma 4. Recent bilateral mammogram and ultrasound [phone] benign BIRADS 2 Plan: 1. Repeat bilateral mammogram in 1 year with physician exam at that time CC: Dr. Garrido, Dr. Bui
== END ==
LOC: WWCWWP 01-18 08:13
PROVIDERS: ATTEND Surgery
DX: D24.1 Benign neoplasm of right breast (principal); Z86.73 Personal history of transient ischemic attack (TIA), and cerebral infarction without residual deficits

== ENCOUNTER 2021-11-23 16:26 | Emergency (ER) | payer MEDICARE ==
[2021-11-23 16:36] VITALS: TEMP 97.9
[2021-11-23] MEDS ORDERED: SODIUM CHLORIDE 0.9% 500 ML 500 ML IV STA (17:43)
[2021-11-23 18:02] LABS: Appearance,Urine Clear (Clear); Bilirubin,Urine Negative (Negative); Blood,Urine Negative (Negative); Color,Urine Light Yellow; Glucose,Urine (UA) Negative (Negative); Ketones,Urine Negative (Negative); Leukocyte Esterase,Urine Trace (Negative); Nitrite,Urine Negative (Negative); PH, Urine 7.5 (5.0-8.0); Protein,Urine Negative (Negative); RBC,Urine 1 /hpf (0-5); Specific Gravity,Urine 1.008 (1.001-1.035); Urobilinogen,Urine <2.0 mg/dL (<2.0); WBC,Urine 1 /hpf (0-5)
[2021-11-23 18:06] LABS: Basophils # (A) 0.1 k/uL (0-0.2); Basophils % (A) 0 %; Eosinophils # (A) 0.1 k/uL (0-0.7); Eosinophils % (A) 1 %; HGB 14.2 gm/dL (11.4-16.0); Lymphocytes # (A) 1.4 k/uL (1.0-4.8); Lymphocytes % (A) 11 %; MCH 30.9 pg (25.0-35.0); MCHC 33.1 g/dL (31.0-37.0); MCV 93.4 fL (80.0-100.0); Mean Platelet Volume 8.8; Monocytes # (A) 0.5 k/uL (0-1.0); Monocytes % (A) 4 %; Neutrophils % (A) 84 %; Platelet Count 182 k/uL (150-450); RDW 13.5 % (11.5-15.5); WBC 13.2 k/uL (3.8-10.6)
[2021-11-23 18:11] LABS: ALT 57 U/L (4-34); AST 135 U/L (14-36); African American GFR (CKD) >90 (>60 ml/min/1.73 sqM); Albumin 4.2 g/dL (3.5-5.0); Alkaline Phosphatase 96 U/L (38-126); Anion Gap 7 mmol/L; Blood Urea Nitrogen 14 mg/dL (7-17); Calcium 8.9 mg/dL (8.4-10.2); Carbon Dioxide 25 mmol/L (22-30); Chloride 107 mmol/L (98-107); Glucose 114 mg/dL (74-99); Lipase 95 U/L (23-300); Non-African American GFR(CKD) 90 (>60 ml/min/1.73 sqM); Potassium 4.1 mmol/L (3.5-5.1); Sodium 139 mmol/L (137-145); Total Protein 7.2 g/dL (6.3-8.2)
--- NOTE | 2021-11-23 19:05 | CT ---
EXAMINATION TYPE: CT abdomen pelvis wo con DATE OF EXAM: 11/23/2021 COMPARISON: None HISTORY: Abdominal and back pain. CT DLP: 886.9 mGycm Automated exposure control for dose reduction was used. Images obtained from the diaphragm to the floor the pelvis without contrast. There is some mild fibrotic change in subsegmental atelectasis at the lung bases. Heart size is fairl y normal. There is no pericardial effusion. There is no pleural effusion. There are a few cysts in the liver that measure up to 3 cm. Spleen is intact. There is no evidence of pancreatic mass. Stomach is intact. There are small hilar hernia. There are numerous calcified gallstones. The bile ducts are nondilated. There is no adrenal mass. Kidneys show normal size and contour. There is no hydronephrosis. Ureters a re nondilated. There is no retroperitoneal adenopathy. Bladder distends smoothly. There is no evidenc e of a pelvic mass. There is no inguinal hernia. There are clips from surgery at the rectosigmoid deanna ction. There are sigmoid diverticula. No diverticulitis. Appendix not seen. There is no mesenteric edema. There is no ascites or free air. There is no sign of a bowel obstructio n. The lumbar vertebrae have normal alignment. There is no compression fracture. Disc spaces are fair ly normal. The posterior elements are intact. The bony pelvis is intact. The hip joints are intact. IMPRESSION: There is colonic diverticulosis without diverticulitis. Numerous calcified gallstones. No dilated ducts. Mild infiltrate and atelectasis at the lung bases. No acute abnormality within the abdomen and pelvis .
[2021-11-23] MEDS ORDERED: ACETAMINOPHEN TAB 500 MG TAB PO STA (19:20)
[2021-11-23 19:25] VITALS: RESP 20
--- NOTE | 2021-11-23 20:13 | US ---
EXAMINATION TYPE: US gallbladder DATE OF EXAM: 11/23/2021 COMPARISON: CT 11/23/21 CLINICAL HISTORY: gallstones. Gallstones noted on CT today; patient complains of back and abdominal p ain. EXAM MEASUREMENTS: Liver Length: 16.9 cm Gallbladder Wall: 0.18 cm CBD: 0.57 cm Right Kidney: 10.1 x 3.7 x 4.8 cm Pancreas: Obscured by bowel gas Liver: Multiple anechoic foci seen throughout. Largest left lobe 1.9 x 1.3 x 2.0 cm; largest right l obe 2.5 x 2.1 x 2.3 cm. Gallbladder: Multiple stones seen Evidence for sonographic Arenas's sign: No CBD: Appears wnl Right Kidney: No hydronephrosis or masses seen IMPRESSION: There are numerous gallstones. Multiple hepatic cysts. No dilated ducts.
--- NOTE | 2021-11-23 21:00 | ED ---
Abdominal Pain HPI - General Chief Complaint: Abdominal Pain Stated Complaint: Back/abd pain Time Seen by Provider: 11/23/21 17:01 Source: patient, EMS Mode of arrival: EMS Limitations: no limitations - History of Present Illness Initial Comments: 74-year-old female with multiple medical conditions presents emergency Department with reported right upper quadrant abdominal pain and right flank and back pain. States pain started suddenly earlier this afternoon. She has a cramping sensation which starts in her flanks, radiate upwards and around to her right upper quadrant. Denies any provocative or palliative factors. Do not take any medications at home for symptoms. No associated nausea or vomiting. Denies any changes in her bowel or bladder habits. Fevers. No chest pain or shortness of breath. No other alleviating, precipitating or modifying factors - Related Data Home Medications Medication Instructions Recorded Confirmed Warfarin [Coumadin] 7.5 mg PO [id number]/19/18 11/23/21 Flaxseed Oil 1,000 mg PO DAILY 06/04/20 11/23/21 Red Yeast Rice 1,200 mg PO DAILY 06/04/20 11/23/21 carvediloL [Coreg] 3.125 mg PO BID 06/18/20 11/23/21 Ascorbic Acid [Vitamin C] 1,000 mg PO HS 01/20/21 11/23/21 Zinc 50 mg PO DAILY 01/20/21 11/23/21 Cholecalciferol [Vitamin D3 (25 25 mcg PO DAILY 11/23/21 11/23/21 Mcg = 1000 Iu)] Multivitamins, Thera [Multivitamin 1 tab PO DAILY 11/23/21 11/23/21 (formulary)] Previous Rx's Medication Instructions Recorded methocarbamoL [Robaxin] 500 mg PO TID PRN #15 tab 11/23/21 Allergies Allergy/AdvReac Type Severity Reaction Status Date / Time acetaminophen Allergy Hallucinati Verified 11/23/21 17:24 [From Darvocet-N] ons aspirin Allergy Nausea Verified 11/23/21 17:24 ciprofloxacin Allergy Dyspnea Verified 11/23/21 17:24 codeine Allergy Rash/Hives Verified 11/23/21 17:24 diphenhydramine HCl Allergy Dyspnea Verified 11/23/21 17:24 [From Benadryl] metronidazole [From Flagyl] Allergy Dyspnea Verified 11/23/21 17:24 pentazocine HCl Allergy Anaphylaxis Verified 11/23/21 17:24 [From Talwin Compound] propoxyphene HCl Allergy Hallucinati Verified 11/23/21 17:24 [From Darvon] ons propoxyphene napsylate Allergy Hallucinati Verified 11/23/21 17:24 [From Darvocet-N] ons Sulfa (Sulfonamide Allergy Rash/Hives Verified 11/23/21 17:24 Antibiotics) ticlopidine HCl [From Ticlid] Allergy Rash/Hives Verified 11/23/21 17:24 clopidogrel bisulfate AdvReac Unknown Verified 11/23/21 17:24 [From Plavix] hydromorphone [From Dilaudid] AdvReac Confusion Verified 11/23/21 17:24 ondansetron [From Zofran] AdvReac Unknown Verified 11/23/21 17:24 phenylephrine HCl AdvReac Nausea & Verified 11/23/21 17:24 [From Contac-D Cold (PE)] Vomiting msg AdvReac Diarrhea Uncoded 11/23/21 17:24 paint AdvReac Dyspnea Uncoded 11/23/21 17:24 perfume AdvReac Dyspnea Uncoded 11/23/21 17:24 Review of Systems ROS Statement: Those systems with pertinent positive or pertinent negative responses have been documented in the HPI. ROS Other: All systems not noted in ROS Statement are negative. Past Medical History Past Medical History: Atrial Fibrillation, Asthma, Chest Pain / Angina, CVA/TIA, Hyperlipidemia, Myocardial Infarction (DE), Mitral Valve Prolapse (MVP) Additional Past Medical History / Comment(s): TIA x5; stroke 1988(no effects); DE x2; irregular heartbeat; hx diverticulitis; BENIGN NEOPLASM RT BREAST; Last Myocardial Infarction Date:: unknown History of Any Multi-Drug Resistant Organisms: None Reported Past Surgical History: Appendectomy, Bowel Resection, Heart Catheterization, Hernia Repair, Hysterectomy, Tonsillectomy Additional Past Surgical History / Comment(s): laproscopy x3; bilat oophorectomy; Past Anesthesia/Blood Transfusion Reactions: Motion Sickness Past Psychological History: No Psychological Hx Reported Smoking Status: Never smoker Past Alcohol Use History: None Reported Past Drug Use History: None Reported - Past Family History Mother Family Medical History: Cancer Additional Family Medical History / Comment(s): cervical cancer at age 89; stroke; Father Family Medical History: Myocardial Infarction (DE) Additional Family Medical History / Comment(s): diverticulitis Sister(s) Additional Family Medical History / Comment(s): ovarian cancer Brother(s) Additional Family Medical History / Comment(s): open heart surgery General Exam Limitations: no limitations General appearance: alert, in no apparent distress Head exam: Present: atraumatic, normocephalic, normal inspection Eye exam: Present: normal appearance, PERRL, EOMI. Absent: scleral icterus, conjunctival injection, periorbital swelling ENT exam: Present: normal exam, mucous membranes moist Neck exam: Present: normal inspection. Absent: tenderness, meningismus, lymphadenopathy Respiratory exam: Present: normal lung sounds bilaterally. Absent: respiratory distress, wheezes, rales, rhonchi, stridor Cardiovascular Exam: Present: regular rate, normal rhythm, normal heart sounds. Absent: systolic murmur, diastolic murmur, rubs, gallop, clicks GI/Abdominal exam: Present: soft, tenderness (ruq), normal bowel sounds. Absent: distended, guarding, rebound, rigid Extremities exam: Present: normal inspection, full ROM, normal capillary refill. Absent: tenderness, pedal edema, joint swelling, calf tenderness Back exam: Present: CVA tenderness (R) Neurological exam: Present: alert, oriented X3, CN II-XII intact Psychiatric exam: Present: normal affect, normal mood Skin exam: Present: warm, dry, intact, normal color. Absent: rash Course Vital Signs 11/23/21 11/23/21 11/23/21 16:34 19:24 21:23 Temperature 97.9 F Pulse Rate 78 80 78 Respiratory 18 20 20 Rate Blood Pressure 154/78 133/60 140/70 O2 Sat by Pulse 98 98 98 Oximetry Medical Decision Making - Medical Decision Making Upon arrival patient was placed into room 23. A thorough history and physical exam was performed. I did offer something for pain control however the patient has multiple ALLERGIES and is requesting to forego pain medications at this time. IV was established laboratory studies were conducted. White count mildly high at 13.2. INR 2.1. AST nail T mildly elevated at 135 and 57. Urinalysis is clear. CT is performed which shows demonstrated numerous gallstones. She is followed up by a couple ultrasound which continues to demonstrate gallstones. Patient is given Tylenol for pain control and results are discussed with the patient. Hospitalization was offered however the patient refused would like to follow up with the surgeon the outpatient setting. She is requesting Dr. Ly. Patient is provided with Dr. Ly's follow-up information. Instructed to call and make an appointment in the morning. Return for any new or worsening symptoms. Eat a bland diet. Patient is requesting something for her back spasms and therefore is given a prescription for Robaxin. Patient agreed to this treatment plan and was discharged home in stable condition - Lab Data Result diagrams: 11/23/21 17:57 11/23/21 17:57 Lab Results 11/23/21 11/23/21 11/23/21 Range/Units 17:57 17:57 17:57 WBC 13.2 H (3.8-10.6) k/uL RBC 4.60 (3.80-5.40) m/uL Hgb 14.2 (11.4-16.0) gm/dL Hct 43.0 (34.0-46.0) % MCV 93.4 (80.0-100.0) fL MCH 30.9 (25.0-35.0) pg MCHC 33.1 (31.0-37.0) g/dL RDW 13.5 (11.5-15.5) % Plt Count 182 (150-450) k/uL MPV 8.8 Neutrophils % 84 % Lymphocytes % 11 % Monocytes % 4 % Eosinophils % 1 % Basophils % 0 % Neutrophils # 11.0 H (1.3-7.7) k/uL Lymphocytes # 1.4 (1.0-4.8) k/uL Monocytes # 0.5 (0-1.0) k/uL Eosinophils # 0.1 (0-0.7) k/uL Basophils # 0.1 (0-0.2) k/uL PT (9.0-12.0) sec INR (<1.2) APTT (22.0-30.0) sec Sodium 139 (137-145) mmol/L Potassium 4.1 (3.5-5.1) mmol/L Chloride 107 (98-107) mmol/L Carbon Dioxide 25 (22-30) mmol/L Anion Gap 7 mmol/L BUN 14 (7-17) mg/dL Creatinine 0.64 (0.52-1.04) mg/dL Est GFR (CKD-EPI)AfAm >90 (>60 ml/min/1.73 sqM) Est GFR (CKD-EPI)NonAf 90 (>60 ml/min/1.73 sqM) Glucose 114 H (74-99) mg/dL Plasma Lactic Acid Erik (0.7-2.0) mmol/L Calcium 8.9 (8.4-10.2) mg/dL Total Bilirubin 1.0 (0.2-1.3) mg/dL AST 135 H (14-36) U/L ALT 57 H (4-34) U/L Alkaline Phosphatase 96 (38-126) U/L Troponin I (0.000-0.034) ng/mL Total Protein 7.2 (6.3-8.2) g/dL Albumin 4.2 (3.5-5.0) g/dL Lipase 95 (23-300) U/L Urine Color Light Yellow Urine Appearance Clear (Clear) Urine pH 7.5 (5.0-8.0) Ur Specific Vanduser 1.008 (1.001-1.035) Urine Protein Negative (Negative) Urine Glucose (UA) Negative (Negative) Urine Ketones Negative (Negative) Urine Blood Negative (Negative) Urine Nitrite Negative (Negative) Urine Bilirubin Negative (Negative) Urine Urobilinogen <2.0 (<2.0) mg/dL Ur Leukocyte Esterase Trace H (Negative) Urine RBC 1 (0-5) /hpf Urine WBC 1 (0-5) /hpf 11/23/21 11/23/21 11/23/21 Range/Units 17:57 17:57 21:12 WBC (3.8-10.6) k/uL RBC (3.80-5.40) m/uL Hgb (11.4-16.0) gm/dL Hct (34.0-46.0) % MCV (80.0-100.0) fL MCH (25.0-35.0) pg MCHC (31.0-37.0) g/dL RDW (11.5-15.5) % Plt Count (150-450) k/uL MPV Neutrophils % % Lymphocytes % % Monocytes % % Eosinophils % % Basophils % % Neutrophils # (1.3-7.7) k/uL Lymphocytes # (1.0-4.8) k/uL Monocytes # (0-1.0) k/uL Eosinophils # (0-0.7) k/uL Basophils # (0-0.2) k/uL PT 20.6 H (9.0-12.0) sec INR 2.1 H (<1.2) APTT 28.3 (22.0-30.0) sec Sodium (137-145) mmol/L Potassium (3.5-5.1) mmol/L Chloride (98-107) mmol/L Carbon Dioxide (22-30) mmol/L Anion Gap mmol/L BUN (7-17) mg/dL Creatinine (0.52-1.04) mg/dL Est GFR (CKD-EPI)AfAm (>60 ml/min/1.73 sqM) Est GFR (CKD-EPI)NonAf (>60 ml/min/1.73 sqM) Glucose (74-99) mg/dL Plasma Lactic Acid Erik 1.8 (0.7-2.0) mmol/L Calcium (8.4-10.2) mg/dL Total Bilirubin (0.2-1.3) mg/dL AST (14-36) U/L ALT (4-34) U/L Alkaline Phosphatase (38-126) U/L Troponin I <0.012 (0.000-0.034) ng/mL Total Protein (6.3-8.2) g/dL Albumin (3.5-5.0) g/dL Lipase (23-300) U/L Urine Color Urine Appearance (Clear) Urine pH (5.0-8.0) Ur Specific Vanduser (1.001-1.035) Urine Protein (Negative) Urine Glucose (UA) (Negative) Urine Ketones (Negative) Urine Blood (Negative) Urine Nitrite (Negative) Urine Bilirubin (Negative) Urine Urobilinogen (<2.0) mg/dL Ur Leukocyte Esterase (Negative) Urine RBC (0-5) /hpf Urine WBC (0-5) /hpf Disposition Clinical Impression: Epigastric abdominal pain, Cholelithiasis Disposition: HOME SELF-CARE Condition: Stable Instructions (If sedation given, give patient instructions): Gallstones (ED), Abdominal Pain (ED) Additional Instructions: Please call and make an appointment with Dr. Thomas. Return to the emergency room for any new or worsening symptoms Prescriptions: methocarbamoL [Robaxin] 500 mg PO TID PRN #15 tab PRN Reason: muscle spasms Is patient prescribed a controlled substance at d/c from ED?: No Referrals: Lety Garrido MD [Primary Care Provider] - 1-2 days Edith Thomas MD [STAFF PHYSICIAN] - 1-2 days Time of Disposition: 21:00
[2021-11-23 21:24] VITALS: BP 140/70; PULSE 78
[2021-11-23 21:29] LABS: INR 2.1 (<1.2); Prothrombin Time 20.6 sec (9.0-12.0)
[2021-11-23 21:30] LABS: Partial Thromboplastin Time 28.3 sec (22.0-30.0)
== END 2021-11-23 21:35 | disposition home or self-care (01) ==
LOC: EC 16:26
DX: K80.20 Calculus of gallbladder without cholecystitis without obstruction (principal); I48.91 Unspecified atrial fibrillation; J45.909 Unspecified asthma, uncomplicated; E78.5 Hyperlipidemia, unspecified; I25.2 Old myocardial infarction; Z79.01 Long term (current) use of anticoagulants; Z88.1 Allergy status to other antibiotic agents; Z88.5 Allergy status to narcotic agent; Z88.2 Allergy status to sulfonamides; Z86.73 Personal history of transient ischemic attack (TIA), and cerebral infarction without residual deficits; Z90.49 Acquired absence of other specified parts of digestive tract; Z90.710 Acquired absence of both cervix and uterus
CPT/HCPCS: 36415; 74176; 76705; 80053; 81001; 83605; 83690; 84484; 85025; 85610; 85730; 99284

== ENCOUNTER → 2022-01-20 | Outpatient (CLI) | payer MEDICARE ==
--- NOTE | 2022-01-20 14:21 | MM ---
Reason for exam: additional evaluation requested from prior study. Last mammogram was performed 1 year ago. History: Patient is postmenopausal and has history of high-risk lesion on a previous biopsy at age 69. Benign MG pre op needle loc RT of the right breast, June 22, 2020. High risk MG stereo VAD BX RT of the right breast, October 31, 2019. Excisional biopsy of the left breast. Took estrogen for 7 years beginning at age 31. Physical Findings: A clinical breast exam by your physician is recommended on an annual basis and results should be correlated with mammographic findings. MG 3D Diag Mammo W/Cad TOM Bilateral CC and MLO view(s) were taken. Prior study comparison: January 18, 2021, bilateral MG 3d diag mammo w/cad TOM. May 03, 2020, right breast MG 3d diag mammo w/cad RT. There are scattered fibroglandular densities. Finding: There are stable architectural distortion in the upper inner quadrant of the right breast consistent with known excisional changes. There is a chronic nodularity in the right breast, stable. Results were given to the patient verbally at the time of the exam. ASSESSMENT: Benign, BI-RAD 2 RECOMMENDATION: Routine screening mammogram of both breasts in 1 year.
== END | disposition home or self-care (01) ==
LOC: RADMAMWWP 13:21
PROVIDERS: ATTEND Surgery
DX: R92.8 Other abnormal and inconclusive findings on diagnostic imaging of breast (principal); Z78.0 Asymptomatic menopausal state
CPT/HCPCS: 77066; G0279; 77062

== ENCOUNTER → 2022-01-26 | Outpatient (CLI) | payer MEDICARE ==
[2022-01-26 14:17] VITALS: BP 134/80; PULSE 76; RESP 16; TEMP 97.9
--- NOTE | 2022-01-26 14:24 | P.PN ---
Subjective Progress Note Date: 01/26/22 Principal diagnosis: fibrocystic breast changes fibrocystic breast disease intraductal papilloma right breast Rowena is a 71 year old white female seen in consultation for DR. Bui on 11-06-19 with a routine screening mammogram performed on [id number]. It revealed a 5 mm area 6-7 cm from the nipple in the right breast. No lesions of concern were noted in the left breast. On 09/19/2019 she had additional views done of the right breast which the 5 mm mass remained present. She subsequently underwent an ultrasound which confirmed the area at 2:00 which correlated with the mammographic lesion. Stereotactic core biopsy of the lesion in the right breast was preformed, and the pathology revelaed an intraductal papilloma. She was recommended to undergo an excisional biopsy which was delayed secondary to Covid. Needle localization and excision was preformed on 06-22-20. It revealed an intraductal papilloma. The patient does not feel any discrete masses or lumps in either breast. She is not complaining of any nipple discharge of concern. She does not complain of any discomfort in her breast. She does not complain of any nipple discharge, skin changes, trauma, or infection of either breast. She did have a left breast biopsy in the past which was benign fibrocystic disease. This was done many years ago. A bilateral mammogram performed on after which she was recommended she undergo bilateral ultrasound. This was performed on the same date. On ultrasound the patient was noted to have in the right breast a 0.4 x 0.5 tolerated and wide cystic stable lesion at 8:00 and 1.3 x 1.8 cm lymph node in the axilla felt to be benign in the left breast she was noted to have a 1.3 x 0.9 cm lymph node in the axilla felt to be benign the overall finding was benign BIRADS 2. The patient herself does not feel any lumps masses or nodules in either breast. She's not complaining of any nipple discharge or skin changes. 01-26-22 The patient had a bilateral mammogram on 01-20-22 which was benign BIRAD 2. She is not complaining of any lumps masses or nodules of concern. He is not complaining of any nipple discharge or skin changes. Caffeine:3 cups/day nicotine: none chocolate: Occasional/intermittent Family history: sister: ovarian cancer at 52 mother: cervical cancer paternal aunt: breast cancer, 60's Hormonal History: menarche: 13 , first born at 23, bresat fed: yes menopause: hysterectomy for bleeding and pain, took one ovary done at 33 BCP: none hormones: 3 years after hysterectomy Surgical history: 1. Hysterectomy in 1 ovary removed 2. Colon resection for diverticular disease 3. Ventral hernia repair 4. Left breast biopsy 5. Tonsillectomy 6. oophrectomy to remove remaining ovary after her hysterectomy she has no ovaries left 7. laproscopic exams for adhesions Medical History: 1. CVA 1987, 5 TIA's related to atrial fib and Mitral valve prolapse; on Coumadin 2. 2 OR last one over 5 years ago Social History: smoke: none alcohol: none drugs: none - Constitutional Constitutional: Denies chills, Denies fever - EENT Eyes: denies blurred vision, denies pain Ears: left: decreased hearing, deny: tinnitus Ears, nose, mouth and throat: Denies headache, Denies sore throat - Breasts Breasts: bilateral: as per HPI - Cardiovascular Comment: OR mitral valve prolapse atrial fibrillation - Respiratory Comment: asthma Respiratory: Denies cough - Gastrointestinal Comment: Colon resection for diverticular disease/ low anterior resection Gastrointestinal: Denies abdominal pain, Denies diarrhea, Denies nausea, Denies vomiting - Genitourinary (Female) Genitourinary: Denies dysuria, Denies hematuria - Menstruation Menstruation: Reports post hysterectomy - Musculoskeletal Musculoskeletal: Denies myalgias - Integumentary Integumentary: Denies pruritus, Denies rash - Neurological Comment: CVA, TIA - Psychiatric Psychiatric: Denies anxiety, Denies depression - Endocrine Endocrine: Denies fatigue, Denies weight change - Hematologic/Lymphatic Comment: coumadin for atrial fibrillation - Allergic/Immunologic Allergic/Immunologic: Reports seasonal allergies Objective - Constitutional General appearance: Present: cooperative - EENT Eyes: Present: EOMI ENT: Present: hearing grossly normal - Neck Neck: Present: normal ROM - Respiratory Respiratory: bilateral: CTA - Cardiovascular Rhythm: regular Heart sounds: normal: S1, S2 - Integumentary Integumentary: Present: normal turgor - Musculoskeletal Musculoskeletal: Present: gait normal - Psychiatric Psychiatric: Present: A&O x's 3, appropriate affect, intact judgment & insight - Additional findings Additional findings: Breast Exam: Bra: 40D inspection: Bilateral grade 2 ptosis Palpation: Right breast: Multi-positional exam fibrocystic changes no dominant masses or notches of concern Right axilla: No adenopathy of concern Left breast: Positional exam fibrocystic changes no dominant masses or nodules of concern Left axilla: No adenopathy of concern Bilateral scars well-healed Assessment and Plan Assessment: Impression: Bilateral fibrocystic breast changes Primary resection of intraductal papilloma Recent bilateral mammogram 01-20-22 benign Plan: Repeat bilateral mammogram in 1 year with physician examined that time CC: Dr. Garrido
== END ==
LOC: WWCWWP 13:31
PROVIDERS: ATTEND Surgery
DX: N60.11 Diffuse cystic mastopathy of right breast (principal); N60.12 Diffuse cystic mastopathy of left breast; D24.1 Benign neoplasm of right breast; Z86.73 Personal history of transient ischemic attack (TIA), and cerebral infarction without residual deficits; I48.91 Unspecified atrial fibrillation; I34.1 Nonrheumatic mitral (valve) prolapse; Z79.01 Long term (current) use of anticoagulants; I25.2 Old myocardial infarction

== ENCOUNTER 2022-04-03 10:49 | Day surgery (SDC) | payer MEDICARE ==
[2022-03-29 12:12] VITALS: BMI 34.2
--- NOTE | 2022-04-03 08:23 | P.GSHP ---
History of Present Illness H&P Date: 04/03/22 CHIEF COMPLAINT: Cholecystitis HISTORY OF PRESENT ILLNESS: The patient is a 71-year-old female who presents with history of epigastric including right upper quadrant abdominal pain. She underwent diagnostic studies for her gallbladder. Separately her clinical picture was consistent with cholecystitis. Now she presents for surgical intervention. PAST MEDICAL HISTORY: Please see list PAST SURGICAL HISTORY: Please see list MEDICATIONS: Please see list ALLERGIES: Please see list SOCIAL HISTORY: Please see list FAMILY HISTORY: Please see list REVIEW OF ORGAN SYSTEMS: CONSTITUTIONAL: No reports of fevers or chills. HEENT: Denies any troubles with the vision or hearing. ENDOCRINE: No reports of hypothyroidism. No diabetes. RESPIRATORY: No recent pneumonias. CARDIOVASCULAR: Denies chest pain or palpitations GI: No blood in stools or constipation. MUSCULOSKELETAL: Has occasional joint pain including back pain. NEURO: No seizure disorders or headaches. No recent stroke. PSYCH: No depression or suicidal ideation. GENITOURINARY: No active blood in urine. No urinary hesitancy. HEMATOLOGIC: No personal or family history of DVTs or pulmonary emboli. SKIN: No skin cancer. PHYSICAL EXAM: VITAL SIGNS: Afebrile vital signs stable GENERAL: Well-developed pleasant in no acute distress. HEENT: No scleral icterus. Extraocular movements grossly intact. Moist buccal mucosa. NECK: Supple without lymphadenopathy. CHEST: Unlabored respirations. Equal bilateral excursions. CARDIOVASCULAR: Regular rate regular rhythm rhythm. Distal 2+ pulses. ABDOMEN: Soft, nondistended. Tender along the epigastrium and right upper quadrant. MUSCULOSKELETAL: No clubbing, cyanosis, or edema. NEURO: Cranial nerves II to XII within normal limits. No focal or lateralizing signs. PSYCH: Alert and oriented to person, place and time. SKIN: Well-perfused good skin turgor. ASSESSMENT: 1. Epigastric and right upper quadrant abdominal pain 2. Chronic cholecystitis 3. Symptomatic gallstones. PLAN: 1. Will need a robotic cholecystectomy possible open. Benefits and risks were described. 2. Heparin for DVT prophylaxis 5000 units. 3. Antibiotic prophylaxis. 4. She is elevated risk due to atrial fibrillation and anticoagulation disorder. Past Medical History Past Medical History: Atrial Fibrillation, Asthma, CVA/TIA, Hyperlipidemia, Myocardial Infarction ([place]), Mitral Valve Prolapse ([place]) Additional Past Medical History / Comment(s): TIA x5; stroke 1987(left side weaker than rt side); [place] x2; hx diverticulitis; ; mult gallstones, Last Myocardial Infarction Date:: unknown History of Any Multi-Drug Resistant Organisms: None Reported Past Surgical History: Appendectomy, Bowel Resection, Heart Catheterization, Hernia Repair, Hysterectomy, Tonsillectomy Additional Past Surgical History / Comment(s): laproscopy x3; bilat oophorectomy; jonatan breast removal of mass(benign), bowel resection with removal a dhesions/repair fistula, Past Anesthesia/Blood Transfusion Reactions: No Reported Reaction Smoking Status: Never smoker - Past Family History Mother Family Medical History: Cancer Additional Family Medical History / Comment(s): cervical cancer Father Family Medical History: Myocardial Infarction ([place]) Additional Family Medical History / Comment(s): . Sister(s) Family Medical History: Cancer Additional Family Medical History / Comment(s): ovarian cancer Brother(s) Additional Family Medical History / Comment(s): open heart surgery Medications and Allergies Home Medications Medication Instructions Recorded Confirmed Type Warfarin [Coumadin] 7.5 mg PO SUMOTUTHFRSA@199903/19/18 03/29/22 History Red Yeast Rice 1,200 mg PO DAILY 06/04/20 03/29/22 History flaxseed oiL [Flaxseed Oil] 1,000 mg PO DAILY 06/04/20 03/29/22 History carvediloL [Coreg] 3.125 mg PO BID 06/18/20 03/29/22 History Ascorbic Acid [Vitamin C] 1,000 mg PO HS 01/20/21 03/29/22 History Zinc 50 mg PO DAILY 01/20/21 03/29/22 History Cholecalciferol [Vitamin D3 (25 25 mcg PO DAILY 11/23/21 03/29/22 History Mcg = 1000 Iu)] Multivitamins, Thera [Multivitamin 1 tab PO DAILY 11/23/21 03/29/22 History (formulary)] Albuterol Inhaler(Strength Unk 1 puff IH Q4HR PRN 03/29/22 03/29/22 History Vit C/E/Zn/Coppr/Lutein/Zeaxan 1 each PO DAILY 03/29/22 03/29/22 History [Preservision Areds 2 Chew Tab] Allergies Allergy/AdvReac Type Severity Reaction Status Date / Time acetaminophen Allergy Hallucinati Verified 03/29/22 11:54 [From Darvocet-N] ons aspirin Allergy Nausea Verified 03/29/22 11:54 ciprofloxacin Allergy Dyspnea Verified 03/29/22 11:54 clindamycin Allergy "effected Verified 03/29/22 11:55 by kidneys-terrible pain" codeine Allergy Rash/Hives Verified 03/29/22 11:54 diphenhydramine HCl Allergy Dyspnea Verified 03/29/22 11:54 [From Benadryl] metronidazole [From Flagyl] Allergy Dyspnea Verified 03/29/22 11:54 pentazocine HCl Allergy Anaphylaxis Verified 03/29/22 11:54 [From Talwin Compound] propoxyphene HCl Allergy Hallucinati Verified 03/29/22 11:54 [From Darvon] ons propoxyphene napsylate Allergy Hallucinati Verified 03/29/22 11:54 [From Darvocet-N] ons Sulfa (Sulfonamide Allergy Rash/Hives Verified 03/29/22 11:54 Antibiotics) ticlopidine HCl [From Ticlid] Allergy Rash/Hives Verified 03/29/22 11:54 clopidogrel bisulfate AdvReac Severe headache Verified 03/29/22 11:54 [From Plavix] hydromorphone [From Dilaudid] AdvReac Confusion Verified 03/29/22 11:54 ondansetron [From Zofran] AdvReac Unknown Verified 03/29/22 11:54 phenylephrine HCl AdvReac Nausea & Verified 03/29/22 11:54 [From Contac-D Cold (PE)] Vomiting msg AdvReac Diarrhea, Uncoded 03/29/22 11:54 tongue turns black and swollen, blisters paint AdvReac Dyspnea Uncoded 03/29/22 11:54 perfume AdvReac Dyspnea Uncoded 03/29/22 11:55
[~2022-04-03 10:49] MED LIST changes: +ACETAMINOPHEN TAB 500 MG TAB PO PRN; -DEXAMETHASONE SOD PHOSPHATE 10 MG/ML 1 ML VIAL IV ONE; +DEXAMETHASONE SOD PHOSPHATE 4 MG/ML 1 ML VIAL IV ONE; -HEPARIN SODIUM,PORCINE 5,000 UNIT/ML 1 ML VIAL SQ ONE; +HEPARIN SODIUM,PORCINE/PF 5,000 UNIT/0.5 ML SYRINGE SQ PRN; +INDOCYANINE GREEN 25 MG VIAL IV STA; -LIDOCAINE 1% (10MG/ML) FOR IV START INTRADERMA PRN; -MORPHINE SULFATE 4 MG/ML SYRINGE IV PRN; -Pre Op ABX Message 1 EACH MISC MISCELLANE ONE
[2022-04-03] MEDS ORDERED: LACTATED RINGERS 1,000 ML IV ONE ×2 (11:15→16:18)
[2022-04-03 11:38] LABS: Basophils # (A) 0.1 k/uL (0-0.2); Basophils % (A) 1 %; Eosinophils # (A) 0.1 k/uL (0-0.7); Eosinophils % (A) 1 %; HCT 42.2 % (34.0-46.0); HGB 13.9 gm/dL (11.4-16.0); Lymphocytes # (A) 1.6 k/uL (1.0-4.8); Lymphocytes % (A) 31 %; MCV 93.9 fL (80.0-100.0); Monocytes # (A) 0.3 k/uL (0-1.0); Monocytes % (A) 6 %; Neutrophils # (A) 2.9 k/uL (1.3-7.7); Neutrophils % (A) 58 %; Platelet Count 196 k/uL (150-450); RDW 13.8 % (11.5-15.5); WBC 5.1 k/uL (3.8-10.6)
[2022-04-03 11:43] LABS: INR 1.1 (<1.2); Prothrombin Time 12.1 sec (9.0-12.0)
[2022-04-03 12:07] LABS: ALT 22 U/L (4-34); African American GFR (CKD) >90 (>60 ml/min/1.73 sqM); Albumin 4.4 g/dL (3.5-5.0); Anion Gap 9 mmol/L; Blood Urea Nitrogen 20 mg/dL (7-17); Calcium 9.1 mg/dL (8.4-10.2); Carbon Dioxide 23 mmol/L (22-30); Chloride 108 mmol/L (98-107); Glucose 105 mg/dL (74-99); Non-African American GFR(CKD) 89 (>60 ml/min/1.73 sqM); Sodium 140 mmol/L (137-145); Total Bilirubin 1.2 mg/dL (0.2-1.3); Total Protein 7.6 g/dL (6.3-8.2)
[2022-04-03 12:08] LABS: AST 41 U/L (14-36); Alkaline Phosphatase 72 U/L (38-126); Potassium 5.4 mmol/L (3.5-5.1)
[2022-04-03] MEDS ORDERED: MIDAZOLAM 2 MG/2 ML VIAL ONE (12:43)
[2022-04-03] MEDS ORDERED: HYDROmorphone (PF) 1 MG/ML ONE (12:43)
[2022-04-03] MEDS ORDERED: fentaNYL (PF) 50 MCG/ML 2 ML AMP ONE (12:43)
[2022-04-03] MEDS ORDERED: PROPOFOL 10 MG/ML 20 ML VIAL IV ONE (12:43)
[2022-04-03] MEDS ORDERED: SUCCINYLCHOLINE CHLORIDE VIAL 200 MG/10 ML VIAL IV ONE (12:43)
[2022-04-03] MEDS ORDERED: ROCURONIUM 10 MG/ML (5 ML VIAL) IV ONE (12:43)
[2022-04-03] MEDS ORDERED: GLYCOPYRROLATE 0.2 MG/ML 2 ML VIAL ONE (12:43)
[2022-04-03] MEDS ORDERED: LIDOCAINE 2% INJ 20 MG/ML (2 ML VIAL) ONE (12:43)
[2022-04-03] MEDS ORDERED: LIDOCAINE 4% LTA KIT (4 ML) TOPICAL ONE (12:43)
[2022-04-03] MEDS ORDERED: NEOSTIGMINE 1 MG/ML 10 ML VIAL ONE (12:43)
[2022-04-03] MEDS ORDERED: LIDOCAINE 1%-EPI 1:100,000 20 ML VIAL SQ ONE (13:17)
[2022-04-03 14:36] VITALS: TEMP 97.2
[2022-04-03] MEDS: fentaNYL (PF) 50 MCG/ML 2 ML AMP IV PRN ×2 (14:43→14:53)
--- NOTE | 2022-04-03 14:44 | P.OP ---
Date of Procedure: 04/03/22 Description of Procedure: SURGEON: EDITH THOMAS MD PREOPERATIVE DIAGNOSES: 1. Symptomatic gallstones with history of acute cholecystitis 2. Atrial fibrillation 3. Chronic anticoagulant use 4. Obesity excess calories, BMI 34.7 5. Hypertensive heart disease with congestive heart failure 6. History of cerebrovascular accident 7. History of myocardial infarction 8. Ischemic cardiomyopathy 9. Mitral valve prolapse POSTOPERATIVE DIAGNOSES: 1. Symptomatic gallstones with history of acute cholecystitis 2. Atrial fibrillation 3. Chronic anticoagulant use 4. Obesity excess calories, BMI 34.7 5. Hypertensive heart disease with congestive heart failure 6. History of cerebrovascular accident 7. History of myocardial infarction 8. Ischemic cardiomyopathy 9. Mitral valve prolapse 10. Severe intra-abdominal adhesions due to prior surgeries OPERATION: 1. Robotic-assisted da Yina Xi laparoscopic lysis of adhesions over 50% of the case 2. Robotic-assisted da Yina Xi laparoscopic cholecystectomy, multiport with FIREFLY ESTIMATED BLOOD LOSS: 5 mL. SPECIMENS REMOVED: Gallbladder. COMPLICATIONS: None. OPERATIVE FINDINGS: 1. Moderate scarring over entire gallbladder with peritoneal adhesions, pericholecystic with features of chronic cholecystitis, requiring over 50% of the case for lysis of adhesions 2. Severe peritoneal adhesions from previous surgery INDICATIONS: The patient is a 71-year-old female who presents with symptomatic gallstones and recent history of acute cholecystitis. Robotic assisted laparoscopic approach was described. Benefits and risks of the procedure including but not limited to bleeding, infection, injury to the biliary tree was described. Informed consent was obtained. DESCRIPTION OF PROCEDURE: Patient was brought to the operating room, placed in supine position. After general induction, the abdomen had been prepped and draped in standard sterile fashion. The robotic da Yina XI system was primed. After a timeout protocol was performed, the patient had been prepped and draped in standard sterile fashion. The patient was injected with indocyanine green. A 5 mm 0 degrees laparoscopic trocar entry was performed along the left upper quadrant. The abdomen insufflated to 15 mmHg pressure which was tolerated well. Diagnostic laparoscopy demonstrated no injury to bowel viscera or mesentery. The liver surface was unremarkable. Next, two 8 mm robotic ports were placed along the right upper abdomen. The camera 8-mm port was maintained along the epigastrium. Another 8 mm port was placed along the left upper abdominal wall after exchanging the 5 mm port. Please note that the ports were placed at least 10 to 15 cm away from the target anatomy of the gallbladder. The robot was docked along the left lateral abdomen. The patient was repositioned in reverse Trendelenburg position. Using a grasper for arm 3, a grasper for arm 4, including hook cautery for arm 1, the robotic system was docked and primed as described. Instruments were interchanged by the staff physical therapy assistant including hook cautery, Bovie cautery and clip appliers. I had sat at the console. The gallbladder was scarred with peritoneal adhesions including along the mid abdomen and pelvis from prior surgeries. Lysis of adhesions over 50% of the case was performed to free the gallbladder from the surrounding tissues. Next attention was brought to the infundibulum and cystic structures. The infundibulum and cystic duct were dissected free from surrounding tissues. The gallbladder had spiraled on the cystic duct with careful dissection performed to isolate anatomy. The cystic duct was isolated. FIREFLY was used to identify the cystic artery and cystic structures. A critical view of safety was obtained. Large PLASTIC clips were used throughout the entire case. Using a clip commercial technician, 2 clips were placed at the junction of the infundibulum and cystic duct. The cystic duct was divided between clips. Next, the cystic artery was similarly clipped and cauterized. A total of 3 clips were used throughout the case. With 2 clips left in the bed of hepatic fossa. Electro-Bovie cautery was used to remove the gallbladder from the hepatic fossa. Hemostasis was checked and found to be adequate. The robot was undocked. I re-scrubbed into the case. Using a 10 mm Endo Catch bag via the left upper quadrant incision, the specimen was removed from the abdominal cavity. All pneumoperitoneum instruments were evacuated from the abdominal cavity. The incisions were reapproximated using 4-0 Monocryl in an interrupted subcuticular fashion. Fascial defects were less than 8 mm in size. Please note along the trocar sites, local anesthetic was placed as a field block prior to insertion of all instruments. Liquid glue was applied to the skin. At the end of the procedure needle, sponge, and instrument count had been verified correct by the signal technician. The patient was transferred to postanesthesia care unit in stable condition. Intraoperative films were shared with the patient's family. Plan - Discharge Summary Discharge Rx Participant: Yes New Discharge Prescriptions: New Simethicone [Gas-X] 125 mg PO AC-TID PRN #20 capsule PRN Reason: Pain Acetaminophen Tab [Tylenol Tab] 1,000 mg PO Q6HR PRN #30 tablet PRN Reason: Pain Continue Warfarin [Coumadin] 7.5 mg PO SUMOTUTHFRSA@1999 Red Yeast Rice 1,200 mg PO DAILY flaxseed oiL [Flaxseed Oil] 1,000 mg PO DAILY carvediloL [Coreg] 3.125 mg PO BID Zinc 50 mg PO DAILY Cholecalciferol [Vitamin D3 (25 Mcg = 1000 Iu)] 25 mcg PO DAILY Vit C/E/Zn/Coppr/Lutein/Zeaxan [Preservision Areds 2 Chew Tab] 1 each PO DAILY Ascorbic Acid [Vitamin C] 1,000 mg PO HS Multivitamins, Thera [Multivitamin (formulary)] 1 tab PO DAILY Albuterol Inhaler(Strength Unk 1 puff IH Q4HR PRN PRN Reason: sob Discharge Medication List Warfarin [Coumadin] 7.5 mg PO SUMOTUTHFRSA@199903/19/18 [History] Red Yeast Rice 1,200 mg PO DAILY 06/04/20 [History] flaxseed oiL [Flaxseed Oil] 1,000 mg PO DAILY 06/04/20 [History] carvediloL [Coreg] 3.125 mg PO BID 06/18/20 [History] Ascorbic Acid [Vitamin C] 1,000 mg PO HS 01/20/21 [History] Zinc 50 mg PO DAILY 01/20/21 [History] Cholecalciferol [Vitamin D3 (25 Mcg = 1000 Iu)] 25 mcg PO DAILY 11/23/21 [History] Multivitamins, Thera [Multivitamin (formulary)] 1 tab PO DAILY 11/23/21 [History] Albuterol Inhaler(Strength Unk 1 puff IH Q4HR PRN 03/29/22 [History] Vit C/E/Zn/Coppr/Lutein/Zeaxan [Preservision Areds 2 Chew Tab] 1 each PO DAILY 03/29/22 [History] Acetaminophen Tab [Tylenol Tab] 1,000 mg PO Q6HR PRN #30 tablet 04/03/22 [Rx] Simethicone [Gas-X] 125 mg PO AC-TID PRN #20 capsule 04/03/22 [Rx] Follow up Appointment(s)/Referral(s): Edith Thomas MD [STAFF PHYSICIAN] - 04/11/22 (Telehealth) Patient Instructions/Handouts: Laparoscopic Cholecystectomy ([facility]), *[facility] - Managing Your Pain After Surgery Without Opioids, Low Fat Diet ([facility]) Activity/Diet/Wound Care/Special Instructions: START BLOOD THINNER 04/05 AND VITAMINS on 04/06 to prevent risk of bleeding. No lifting over 10 pounds in 2 weeks until April 17. May shower. No bath tub soaks for two weeks until April 17. Diet as tolerated. Use Tylenol, simethicone and ibuprofen or Aleve scheduled for the next 24-48 hours for best pain relief. Use ice along incisions for today to prevent swelling. Discharge Disposition: HOME SELF-CARE
[2022-04-03] MEDS ORDERED: SODIUM CHLORIDE 0.9% 500 ML 500 ML IV ONE (15:43)
[2022-04-03] MEDS ORDERED: DEXAMETHASONE SOD PHOSPHATE 10 MG/ML 1 ML VIAL IVP PRN (15:43)
[2022-04-03] MEDS ORDERED: ONDANSETRON 4 MG/2 ML VIAL IVP PRN (15:43)
[2022-04-03] MEDS ORDERED: ONDANSETRON 4 MG/2 ML VIAL ONE (15:50)
[2022-04-03] MEDS ORDERED: DEXAMETHASONE SOD PHOSPHATE 10 MG/ML 1 ML VIAL IVP ONE (15:51)
[2022-04-03] MEDS ORDERED: ONDANSETRON 4 MG/2 ML VIAL IVP ONE ×2 (15:51)
[2022-04-03 16:34] VITALS: PULSE 62
[2022-04-03] MEDS ORDERED: METOCLOPRAMIDE 5 MG/ML 2 ML VIAL ONE (16:54)
[2022-04-03] MEDS ORDERED: SCOPOLAMINE 1 MG/72 HR PATCH TRANSDERM ONE (16:55)
[2022-04-03] MEDS ORDERED: METOCLOPRAMIDE 5 MG/ML 2 ML VIAL IVP ONE (16:56)
[2022-04-03 17:55] VITALS: BP 137/85; RESP 16
== END 2022-04-03 18:12 | disposition home or self-care (01) ==
LOC: OR 10:49
PROVIDERS: ATTEND Surgery Plastic and Reconstructive Surgery
DX: K80.10 Calculus of gallbladder with chronic cholecystitis without obstruction (principal); K66.0 Peritoneal adhesions (postprocedural) (postinfection); I48.91 Unspecified atrial fibrillation; Z79.01 Long term (current) use of anticoagulants; E66.09 Other obesity due to excess calories; Z68.34 Body mass index [BMI] 34.0-34.9, adult; I11.0 Hypertensive heart disease with heart failure; I50.9 Heart failure, unspecified; I69.351 Hemiplegia and hemiparesis following cerebral infarction affecting right dominant side; I25.2 Old myocardial infarction; I25.5 Ischemic cardiomyopathy; I34.1 Nonrheumatic mitral (valve) prolapse; Z79.899 Other long term (current) drug therapy; J45.909 Unspecified asthma, uncomplicated; E78.5 Hyperlipidemia, unspecified; Z88.1 Allergy status to other antibiotic agents; Z88.5 Allergy status to narcotic agent; Z88.8 Allergy status to other drugs, medicaments and biological substances; Z88.2 Allergy status to sulfonamides; Z88.6 Allergy status to analgesic agent; Z88.3 Allergy status to other anti-infective agents; Z91.09 Other allergy status, other than to drugs and biological substances; Z80.49 Family history of malignant neoplasm of other genital organs; Z80.41 Family history of malignant neoplasm of ovary; Z82.49 Family history of ischemic heart disease and other diseases of the circulatory system
CPT/HCPCS: 88304; 80053; 85025; 85610; 47562; 49329; J2250; J0330; J1100 ×2; J2710; J2765; J0690; J2405; J3010; J1170; J2704; J1644; J2001

== ENCOUNTER → 2023-01-31 | Outpatient (CLI) | payer MEDICARE ==
--- NOTE | 2023-02-01 10:07 | MM ---
Reason for Exam: Screening (asymptomatic). Last mammogram was performed 1 year(s) and 1 month(s) ago. Patient History: Menarche at age 12. First Full-Term at age 23. Left ovary removed at age 31. Right ovary removed at age 44. Hysterectomy at age 31. Postmenopausal. Patient has history of breast feeding. Estrogen for 7 years from age 31 until age 38. Excisional Biopsy on the Left side. 06/22/2020, Benign Core Biopsy on the right side. 10/31/2019, High risk Core Biopsy on the right side. Risk Values: Milla 5 year model risk: 2.4%. NCI Lifetime model risk: 5.8%. Prior Study Comparison: 05/03/2020 Right Diagnostic Mammogram, [facility]. 01/18/2021 Bilateral Diagnostic Mammogram, [facility]. 01/20/2022 Bilateral Diagnostic Mammogram, [facility]. Tissue Density: There are scattered fibroglandular densities. Findings: Analyzed By CAD. Postexcisional changes right breast. Chronic low density circumscribed nodularity lateral right breast. No significant change from prior exams. Overall Assessment: Benign, BI-RAD 2 Management: Screening Mammogram of both breasts in 1 year. . Patient should continue monthly self-breast exams. A clinical breast exam by your physician is recommended on an annual basis. This exam should not preclude additional follow-up of suspicious palpable abnormalities. Note on Milla scores and lifetime risk: 1. A Milla score greater than 3% is considered moderate risk. If this is the case, consider specialist referral to assess eligibility for a risk reducing agent. 2. If overall lifetime risk for the development of breast cancer is 20% or higher, the patient may qualify for future screening with alternating mammogram and breast MRI. Electronically signed and approved by: Alexandra May M.D. Radiologist
== END | disposition home or self-care (01) ==
LOC: RADMAMWWP 15:10
PROVIDERS: ATTEND Surgery
DX: Z12.31 Encounter for screening mammogram for malignant neoplasm of breast (principal); Z78.0 Asymptomatic menopausal state
CPT/HCPCS: 77063; 77067

== ENCOUNTER → 2023-02-01 | Outpatient (CLI) | payer MEDICARE ==
[2023-02-01 11:08] VITALS: BP 136/74; PULSE 77; RESP 16; TEMP 97.9
--- NOTE | 2023-02-01 11:26 | P.PN ---
Subjective Progress Note Date: 02/01/23 Principal diagnosis: fibrocystic breast changes fibrocystic breast changes Kritsel is a 72-year-old white female status post needle localization and excisional biopsy of the right breast on for an intraductal papilloma. The patient at this time is not complaining of any new nipple discharge or skin changes. She is not complaining of any lumps masses or nodules of concern in either breast. She had a bilateral mammogram performed on which was personally reviewed with radiology and benign BIRADS 2. Caffeine:3 cups/day nicotine: none chocolate: Occasional/intermittent Family history: sister: ovarian cancer at 52 mother: cervical cancer paternal aunt: breast cancer, 60's Hormonal History: menarche: 13 , first born at 23, bresat fed: yes menopause: hysterectomy for bleeding and pain, took one ovary done at 33 BCP: none hormones: 3 years after hysterectomy Surgical history: 1. Hysterectomy in 1 ovary removed 2. Colon resection for diverticular disease 3. Ventral hernia repair 4. Left breast biopsy 5. Tonsillectomy 6. oophrectomy to remove remaining ovary after her hysterectomy she has no ovaries left 7. laproscopic exams for adhesions 8. gallbladder Medical History: 1. CVA 1987, 5 TIA's related to atrial fib and Mitral valve prolapse; on Coumadin 2. 2 GA last one over 5 years ago Social History: smoke: none alcohol: none drugs: none - Constitutional Constitutional: Denies chills, Denies fever - EENT Eyes: denies blurred vision, denies pain Ears: left: decreased hearing, deny: tinnitus Ears, nose, mouth and throat: Denies headache, Denies sore throat - Breasts Breasts: bilateral: as per HPI - Cardiovascular Comment: GA mitral valve prolapse atrial fibrillation - Respiratory Comment: asthma Respiratory: Denies cough - Gastrointestinal Comment: Colon resection for diverticular disease/ low anterior resection Gastrointestinal: Denies abdominal pain, Denies diarrhea, Denies nausea, Denies vomiting - Genitourinary (Female) Genitourinary: Denies dysuria, Denies hematuria - Menstruation Menstruation: Reports post hysterectomy - Musculoskeletal Musculoskeletal: Denies myalgias - Integumentary Integumentary: Denies pruritus, Denies rash - Neurological Comment: CVA, TIA - Psychiatric Psychiatric: Denies anxiety, Denies depression - Endocrine Endocrine: Denies fatigue, Denies weight change - Hematologic/Lymphatic Comment: coumadin for atrial fibrillation - Allergic/Immunologic Allergic/Immunologic: Reports seasonal allergies Objective - Vital Signs Vital signs: Vital Signs Temp 97.9 F 02/01/23 11:05 Pulse 77 02/01/23 11:05 Resp 16 02/01/23 11:05 BP 136/74 02/01/23 11:05 Pulse Ox 95 02/01/23 11:05 FiO2 Intake & Output 01/31/23 02/01/23 02/01/23 18:59 06:59 18:59 Weight 86.183 kg - Constitutional General appearance: Present: cooperative - EENT Eyes: Present: EOMI ENT: Present: hearing grossly normal - Neck Neck: Present: normal ROM - Respiratory Respiratory: bilateral: CTA - Cardiovascular Rhythm: regular Heart sounds: normal: S1, S2 - Gastrointestinal General gastrointestinal: Present: soft - Integumentary Integumentary: Present: normal turgor - Musculoskeletal Musculoskeletal: Present: gait normal - Psychiatric Psychiatric: Present: A&O x's 3, appropriate affect, intact judgment & insight - Additional findings Additional findings: Breast Exam: Bra: 40D inspection: Bilateral grade 2 ptosis Palpation: Right breast: Multi-positional exam fibrocystic changes no dominant masses or notches of concern Right axilla: No adenopathy of concern Left breast: Positional exam fibrocystic changes no dominant masses or nodules of concern Left axilla: No adenopathy of concern Bilateral scars well-healed Assessment and Plan Assessment: Patient: Fibrocystic [place] [id number] benign BIRADS 2 Plan: Bilateral mammogram in 1 year with physician exam at that time CC: Dr. Garrido
== END | disposition home or self-care (01) ==
LOC: WWCWWP 10:37
PROVIDERS: ATTEND Surgery
DX: N60.11 Diffuse cystic mastopathy of right breast (principal); N60.12 Diffuse cystic mastopathy of left breast; I25.2 Old myocardial infarction; Z86.73 Personal history of transient ischemic attack (TIA), and cerebral infarction without residual deficits; Z80.3 Family history of malignant neoplasm of breast; Z88.6 Allergy status to analgesic agent; Z88.5 Allergy status to narcotic agent; Z88.1 Allergy status to other antibiotic agents; Z88.2 Allergy status to sulfonamides; Z91.048 Other nonmedicinal substance allergy status; Z79.01 Long term (current) use of anticoagulants

== ENCOUNTER → 2024-02-04 | Outpatient (CLI) | payer MEDICARE ==
--- NOTE | 2024-02-04 10:42 | MM ---
Reason for Exam: Screening (asymptomatic). Last screening mammogram was performed 12 month(s) ago. Patient History: Menarche at age 12. First Full-Term at age 23. Left ovary removed at age 31. Right ovary removed at age 44. Hysterectomy at age 31. Postmenopausal. Patient has history of breast feeding. Estrogen for 7 years from age 31 until age 38. Excisional Biopsy on the Left side. 06/22/2020, Benign Core Biopsy on the right side. 10/31/2019, High risk Core Biopsy on the right side. Risk Values: Milla 5 year model risk: 2.4%. NCI Lifetime model risk: 5.5%. Prior Study Comparison: 01/18/2021 Bilateral Diagnostic Mammogram, [facility]. 01/20/2022 Bilateral Diagnostic Mammogram, [facility]. 01/31/2023 Bilateral MG 3D screening mammo w/cad, [facility]. Tissue Density: The breasts are almost entirely fatty. Findings: Analyzed By CAD. Surgical clips right breast. Right breast: There is no suspicious group of microcalcifications or new suspicious mass. Benign-appearing calcifications right breast. Left breast: There is no suspicious group of microcalcifications or new suspicious mass. Overall Assessment: Benign, BI-RAD 2 Management: Screening Mammogram of both breasts in [address] [facility] will attempt to contact patient to return for supplemental views and ultrasound if indicated. Patient should continue monthly self-breast exams. A clinical breast exam by your physician is recommended on an annual basis. This exam should not preclude additional follow-up of suspicious palpable abnormalities. Note on Milla scores and lifetime risk: 1. A Milla score greater than 3% is considered moderate risk. If this is the case, consider specialist referral to assess eligibility for a risk reducing agent. 2. If overall lifetime risk for the development of breast cancer is 20% or higher, the patient may qualify for future screening with alternating mammogram and breast MRI. Electronically signed and approved by: Champ Keyes DO
== END | disposition home or self-care (01) ==
LOC: RADMAMWWP 09:57
PROVIDERS: ATTEND Surgery
DX: Z12.31 Encounter for screening mammogram for malignant neoplasm of breast (principal); Z78.0 Asymptomatic menopausal state
CPT/HCPCS: 77063; 77067

== ENCOUNTER → 2025-02-04 | Outpatient (CLI) | payer MEDICARE ==
--- NOTE | 2025-02-04 11:31 | MM ---
Reason for Exam: Screening (asymptomatic). Last screening mammogram was performed 12 month(s) ago. Patient History: Menarche at age 12. First Full-Term at age 23. Left ovary removed at age 31. Right ovary removed at age 44. Hysterectomy at age 31. Postmenopausal. Patient has history of breast feeding. Estrogen for 7 years from age 31 until age 38. Excisional Biopsy on the Left side. 06/22/2020, Benign Core Biopsy on the right side. 10/31/2019, High risk Core Biopsy on the right side. Sister had ovarian cancer, age 47. Risk Values: Milla 5 year model risk: 2.4%. NCI Lifetime model risk: 5.1%. Prior Study Comparison: 01/20/2022 Bilateral Diagnostic Mammogram, [facility]. 01/31/2023 Bilateral MG 3D screening mammo w/cad, [facility]. 02/04/2024 Bilateral MG 3D screening mammo w/cad, [facility]. Tissue Density: There are scattered areas of fibroglandular density. Findings: Analyzed By CAD. Surgical clips medially in the right breast are redemonstrated. There is stable 5 mm round circumscribed mass in the right breast outer aspect. Benign-appearing round and vascular calcifications bilaterally are redemonstrated. Benign-appearing bilateral axillary lymph nodes are again seen. There is no suspicious group of microcalcifications or new suspicious mass in either breast. Overall Assessment: Benign, BI-RAD 2 Management: Screening Mammogram of both breasts in 1 year. . Patient should continue monthly self-breast exams. A clinical breast exam by your physician is recommended on an annual basis. This exam should not preclude additional follow-up of suspicious palpable abnormalities. Note on Milla scores and lifetime risk: 1. A Milla score greater than 3% is considered moderate risk. If this is the case, consider specialist referral to assess eligibility for a risk reducing agent. 2. If overall lifetime risk for the development of breast cancer is 20% or higher, the patient may qualify for future screening with alternating mammogram and breast MRI. [facility], , 02/04/2025 11:28 AM. Electronically signed and approved by: Osmany Garcia M.D.
== END | disposition home or self-care (01) ==
LOC: RADMAMWWP 10:34
PROVIDERS: ATTEND Surgery
DX: Z12.31 Encounter for screening mammogram for malignant neoplasm of breast (principal); R92.323 Mammographic fibroglandular density, bilateral breasts; Z78.0 Asymptomatic menopausal state
CPT/HCPCS: 77063; 77067

== ENCOUNTER 2025-04-07 10:23 | Day surgery (SDC) | payer MEDICARE ==
[2025-04-06 14:10] VITALS: BMI 31.4
[2025-04-07] MEDS: LACTATED RINGERS 1,000 ML IV SCH (12:40)
[2025-04-07 12:41] VITALS: TEMP 97.8
[2025-04-07] MEDS: IV FLUID CONTINUATION 1,000 ML IV ONE (12:41)
[2025-04-07] MEDS ORDERED: PROPOFOL 10 MG/ML 20 ML VIAL IV ONE (12:50)
--- NOTE | 2025-04-07 13:02 | P.PCN ---
Date of Procedure: 04/07/25 Procedure(s) Performed: BRIEF HISTORY: Patient is a 74-year-old pleasant white female scheduled for an elective colonoscopy as a part of screening for colon cancer. PROCEDURE PERFORMED: Colonoscopy. PREOPERATIVE DIAGNOSIS: Screening for colon cancer. IV sedation per Anesthesia. PROCEDURE: After informed consent was obtained, the patient, was brought into the endoscopy unit. IV sedation was administered by Anesthesia under continuous monitoring. Digital rectal examination was normal. Initially the Olympus CF-160 flexible video colonoscope was then inserted in the rectum, gradually advanced into the cecum without any difficulty. Careful examination was performed as the scope was gradually being withdrawn. Ileocecal valve and the appendiceal orifice were visualized and appeared normal. Prep was excellent. Mucosa of the cecum, ascending colon, transverse colon, descending colon, sigmoid colon, and rectum appeared normal. Moderate diffuse scattered diverticulosis. Retroflexion was performed in the rectum and no lesions were seen. The patient tolerated the procedure well. IMPRESSION: Normal-appearing colon from rectum to cecum with no evidence of colorectal neoplasia Moderate diffuse diverticulosis. RECOMMENDATIONS: Findings of this examination were discussed with the patient a s well as her family. She was advised to be on a high-fiber diet and take fiber supplements on regular basis..
[2025-04-07 13:08] VITALS: RESP 16
[2025-04-07 13:24] VITALS: BP 134/76; PULSE 61
== END 2025-04-07 13:43 | disposition home or self-care (01) ==
LOC: ORWHC2ENDO 10:23
PROVIDERS: ATTEND Internal Medicine Gastroenterology
DX: Z12.11 Encounter for screening for malignant neoplasm of colon (principal); K57.30 Diverticulosis of large intestine without perforation or abscess without bleeding; I34.1 Nonrheumatic mitral (valve) prolapse; I48.91 Unspecified atrial fibrillation; I25.10 Atherosclerotic heart disease of native coronary artery without angina pectoris; E78.5 Hyperlipidemia, unspecified; I10 Essential (primary) hypertension; J45.909 Unspecified asthma, uncomplicated; Z79.899 Other long term (current) drug therapy; Z79.51 Long term (current) use of inhaled steroids; Z86.73 Personal history of transient ischemic attack (TIA), and cerebral infarction without residual deficits; Z88.6 Allergy status to analgesic agent; Z88.8 Allergy status to other drugs, medicaments and biological substances; Z88.5 Allergy status to narcotic agent; Z88.1 Allergy status to other antibiotic agents; Z90.49 Acquired absence of other specified parts of digestive tract
CPT/HCPCS: J2704; G0121